=== PATIENT | female | born 1985 | race Caucasian/White ===

== ENCOUNTER 2016-11-30 11:03 | Emergency (ER) | payer SELFPAY ==
[2016-11-30] MEDS ORDERED: DIAZEPAM 5 MG TABLET PO ONE (11:25)
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
[2016-11-30] MEDS ORDERED: ACETAMINOPHEN 325 MG TABLET PO ONE (12:40)
[2016-11-30 13:09] VITALS: BP 118/79
--- NOTE | 2016-12-01 08:43 | EKG REPORT ---
SEVERITY:- ABNORMAL ECG - SINUS TACHYCARDIA NONSPECIFIC INTRAVENTRICULAR CONDUCTION DELAY : Confirmed by: Marcella Jackman 01-Dec-2016 08:42:12
== END 2016-11-30 12:50 | disposition home or self-care (01) ==
LOC: ER 11:03
DX: F41.9 Anxiety disorder, unspecified (principal); Y09 Assault by unspecified means; R06.02 Shortness of breath; R07.9 Chest pain, unspecified; R00.0 Tachycardia, unspecified; F17.210 Nicotine dependence, cigarettes, uncomplicated; Z87.01 Personal history of pneumonia (recurrent); Z88.0 Allergy status to penicillin; Z88.2 Allergy status to sulfonamides
CPT/HCPCS: 71020; 93005; 93010; 99284

== ENCOUNTER 2018-12-05 11:22 | Inpatient (IN) | payer OTHER ==
[2018-12-05] MEDS ORDERED: OXYCODONE-ACETAMINOPHEN 5-325 MG TABLET PO ONE (11:51)
[2018-12-05] MEDS ORDERED: CLINDAMYCIN 600 MG/D5W RTU 600 MG/50 ML RTUPB IV ONE (11:51)
--- NOTE | 2018-12-05 11:54 | ER Document Report ---
ED Medical Screen (RME) - General Chief Complaint: Hand Swelling Stated Complaint: RIGHT ARM SWELLING, PAIN Time Seen by Provider: 12/05/18 11:45 Primary Care Provider: CLIF BOSE MD [Primary Care Provider] - Follow up as needed Mode of Arrival: Ambulatory Information source: Patient Notes: Patient presents complaining of right hand and forearm pain, swelling and erythema. Patient states symptoms started last night and progressively worsened today. Patient states that her pain extends up the entire right upper extremity into the axilla area although the erythema and swelling is localized to the forearm and hand. Patient does report removing a splinter from her right second finger 2 days ago. Patient's tetanus immunization is currently up-to-date I have greeted and performed a rapid initial assessment of this patient. A comprehensive ED assessment and evaluation of the patient, analysis of test results and completion of the medical decision making process will be conducted by additional ED providers. TRAVEL OUTSIDE OF THE [place] IN LAST 30 DAYS: No - Related Data Allergies/Adverse Reactions: amoxicillin trihydrate [From Augmentin] Allergy (Intermediate, Verified 12/05/18 11:24) VOMITING Potassium Clavulanate * [From Augmentin] Allergy (Intermediate, Verified 12/05/18 11:24) VOMITING Sulfa (Sulfonamide Antibiotics) Allergy (Verified 12/05/18 11:24) Past Medical History - Social History Chew tobacco use (# tins/day): No Frequency of alcohol use: None Drug Abuse: None Pulmonary Medical History: Reports: Hx Bronchitis - chronic problem, Hx Pneumonia Renal/ Medical History: Denies: Hx Peritoneal Dialysis Psychiatric Medical History: Reports: Hx Anxiety, Hx Depression Past Surgical History: Reports: Hx Appendectomy - Immunizations Hx Diphtheria, Pertussis, Tetanus Vaccination: Yes - 2008 Physical Exam - Vital signs Vitals: Temp Pulse Resp BP Pulse Ox 98.1 F 95 16 138/81 H 98 12/05/18 11:28 12/05/18 11:28 12/05/18 11:28 12/05/18 11:28 12/05/18 11:28 - Extremities General upper extremity: Tender, Edema. No: Normal color - Erythema, tenderness and warmth to right hand and distal right forearm Course - Vital Signs Vital signs: Temp Pulse Resp BP Pulse Ox 98.1 F 95 16 138/81 H 98 12/05/18 11:28 12/05/18 11:28 12/05/18 11:28 12/05/18 11:28 12/05/18 11:28 Doctor's Discharge - Discharge Referrals: CLIF BOSE MD [Primary Care Provider] - Follow up as needed
[2018-12-05 12:30] LABS: ABSOLUTE LYMPHOCYTES (AUTO) 0.9 10^3/uL (0.5-4.7); ABSOLUTE MONOCYTES (AUTO) 0.6 10^3/uL (0.1-1.4); ABSOLUTE NEUT (AUTO) 9.6 10^3/uL (1.7-8.2); BASOPHILS % (AUTO) 0.3 % (0-2); EOSINOPHILS % (AUTO) 0.1 % (0-6); HEMATOCRIT 41.1 % (36.0-47.0); HEMOGLOBIN 14.1 g/dL (12.0-15.5); LYMPHOCYTES % (AUTO) 8.4 % (13-45); MEAN CORPUSCULAR HEMOGLOBIN 32.2 pg (27.0-33.4); MEAN CORPUSCULAR HGB CONC 34.3 g/dL (32.0-36.0); MEAN CORPUSCULAR VOLUME 94 fl (80-97); MONOCYTES % (AUTO) 5.1 % (3-13); PLATELET COUNT 196 10^3/uL (150-450); RED BLOOD COUNT 4.38 10^6/uL (3.72-5.28); RED CELL DISTRIBUTION WIDTH 14.2 % (11.5-14.0); SEGMENTED NEUTROPHILS % (AUTO) 86.1 % (42-78); TOTAL CELLS COUNTED % (AUTO) 100 %; WHITE BLOOD COUNT 11.1 10^3/uL (4.0-10.5)
--- NOTE | 2018-12-05 12:39 | RADIOLOGY REPORT (SQ) ---
EXAM DESCRIPTION: HAND RIGHT 3 VIEWS COMPLETED DATE/TIME: 12/05/2018 12:31 pm REASON FOR STUDY: PW t r 2nd finger, hand/FA swelling COMPARISON: None. EXAM PARAMETERS: NUMBER OF VIEWS: Three views. TECHNIQUE: AP, lateral and oblique radiographic images acquired of the right hand. LIMITATIONS: None. FINDINGS: MINERALIZATION: Normal. BONES: No acute fracture or dislocation. No worrisome bone lesions. JOINTS: No effusions. SOFT TISSUES: No soft tissue swelling. No foreign body. OTHER: No other significant finding. IMPRESSION: NEGATIVE STUDY OF THE RIGHT HAND. NO RADIOGRAPHIC EVIDENCE OF ACUTE INJURY. TECHNICAL DOCUMENTATION: JOB ID: [id number] [employer]- All Rights Reserved Reading location - IP/workstation name: [email or web address]
[2018-12-05] MEDS ORDERED: MORPHINE SULFATE 10 MG/ML INJ IV ONE (13:24)
--- NOTE | 2018-12-05 13:27 | ER Document Report ---
ED General - General Chief Complaint: Hand Swelling Stated Complaint: RIGHT ARM SWELLING, PAIN Time Seen by Provider: 12/05/18 11:45 Primary Care Provider: CLIF BOSE MD [EMERITUS] - Follow up as needed Mode of Arrival: Ambulatory TRAVEL OUTSIDE OF THE [place] IN LAST 30 DAYS: No - HPI Notes: Patient is a 33-year-old female with no significant past medical history who presents the emergency department complaining of right arm redness and pain with associated swelling that developed over the past 24 hours. Patient states that on the right index finger she did have a splinter that she removed 2 days ago. Tetanus is reported to be up-to-date. Denies any injury. She is still eating and drinking otherwise without difficulty. She is urinating normally. No history of IV drug abuse. Denies any headache, fever, neck pain, URI, sore throat, chest pain, palpitations, syncope, cough, shortness of breath, wheeze, dyspnea, abdominal pain, nausea/vomiting/diarrhea, urinary retention, dysuria, hematuria, loss of control of bowel or bladder, numbness/tingling, saddle anesthesia, muscle paralysis/weakness. - Related Data Allergies/Adverse Reactions: amoxicillin trihydrate [From Augmentin] Allergy (Intermediate, Verified 12/05/18 11:24) VOMITING Potassium Clavulanate * [From Augmentin] Allergy (Intermediate, Verified 12/05/18 11:24) VOMITING Sulfa (Sulfonamide Antibiotics) Allergy (Verified 12/05/18 11:24) Past Medical History - General Information source: Patient - Social History Smoking Status: Current Every Day Smoker Chew tobacco use (# tins/day): No Frequency of alcohol use: None Drug Abuse: None Family History: Reviewed & Not Pertinent Patient has suicidal ideation: No Patient has homicidal ideation: No Pulmonary Medical History: Reports: Hx Bronchitis - chronic problem, Hx Pneumonia Renal/ Medical History: Denies: Hx Peritoneal Dialysis Psychiatric Medical History: Reports: Hx Anxiety, Hx Depression Past Surgical History: Reports: Hx Appendectomy - Immunizations Hx Diphtheria, Pertussis, Tetanus Vaccination: Yes - 2008 Hx Pneumococcal Vaccination: 05/17/11 Review of Systems - Review of Systems -: Yes All other systems reviewed and negative Physical Exam - Vital signs Vitals: Temp Pulse Resp BP Pulse Ox 98.1 F 95 16 138/81 H 98 12/05/18 11:28 04/21/19 11:28 12/05/18 11:28 12/05/18 11:28 12/05/18 11:28 - Notes Notes: PHYSICAL EXAMINATION: GENERAL: Well-appearing, well-nourished and in no acute distress. HEAD: Atraumatic, normocephalic. EYES: Pupils equal round and reactive to light, extraocular movements intact, sclera anicteric, conjunctiva are normal. ENT: Nares patent and without discharge. oropharynx clear without exudates. No tonsilar hypertrophy or erythema. Moist mucous membranes. NECK: Normal range of motion, supple without lymphadenopathy LUNGS: Breath sounds clear to auscultation bilaterally and equal. No wheezes rales or rhonchi. HEART: Regular rate and rhythm without murmurs, rubs, gallops. Musculoskeletal: Rt UE through the fingers: FROM to passive/active. Strength 5+/5. N/V intact distal. Extremities: No cyanosis, clubbing, or edema b/l. Peripheral pulses 2+. Capillary refill less than 3 seconds. NEUROLOGICAL: Normal speech, normal gait. Normal sensory, motor exams PSYCH: Normal mood, normal affect. SKIN: Rt forearm/hand: there is mild erythema to the doral hand with a scabbed area noted where splinter removed from index finger. The forearm is otherwise erythemic, warmth, swollen (with trace pitting edema), no maximal point of tenderness or fluctuance noted. Area has been marked. The erythema is circumferential to the forearm. Course - Re-evaluation Re-evalutation: 12/05/18 14:27 Patient is an afebrile, well-hydrated, 33-year-old female who presents the emergency department with an extensive cellulitis to her right forearm. Vitals are acceptable without significant tachycardia, tachypnea, or hypoxia. PE is otherwise unremarkable. Venous Doppler was unremarkable. X-ray was also unremarkable of the hand. CBC does show a mildly elevated white count. BMP unremarkable. Patient was given IV clindamycin. I did have Dr. Abe jeanal the patient as well and agrees with admission for IV antibiotics as the extensiveness of the cellulitis developed over the past 18 hours. Patient is in agreement with this plan. I did speak with our hospitalist, Dr. Causey, who accepted patient for admission to telemetry. - Vital Signs Vital signs: Temp Pulse Resp BP Pulse Ox 98.1 F 95 19 126/84 H 98 12/05/18 11:28 12/05/18 11:28 12/05/18 13:01 12/05/18 13:01 12/05/18 13:01 - Laboratory Result Diagrams: 12/05/18 12:12 12/05/18 13:30 Laboratory results interpreted by me: 12/05/18 12/05/18 12:12 13:30 WBC 11.1 H RDW 14.2 H Seg Neutrophils % 86.1 H Lymphocytes % 8.4 L Absolute Neutrophils 9.6 H Sodium 135.7 L Glucose 122 H Alkaline Phosphatase 139 H Discharge - Discharge Clinical Impression: Right forearm cellulitis Condition: Stable Disposition: ADMITTED INPATIENT Admitting Provider: Padilla (Hospitalist) Unit Admitted: Telemetry Referrals: CLIF BOSE MD [EMERITUS] - Follow up as needed
[2018-12-05 14:05] LABS: ALANINE AMINOTRANSFERASE 25 U/L (9-52); ALBUMIN 3.8 g/dL (3.5-5.0); ALKALINE PHOSPHATASE 139 U/L (38-126); ANION GAP 9 (5-19); ASPARTATE AMINO TRANSFERASE 30 U/L (14-36); BILIRUBIN,DIRECT 0.3 mg/dL (0.0-0.4); BILIRUBIN,TOTAL 0.7 mg/dL (0.2-1.3); BLOOD UREA NITROGEN 9 mg/dL (7-20); CALCIUM 9.2 mg/dL (8.4-10.2); CARBON DIOXIDE 26 mmol/L (22-30); CHLORIDE 101 mmol/L (98-107); GLUCOSE 122 mg/dL (75-110); POTASSIUM 3.9 mmol/L (3.6-5.0); SODIUM 135.7 mmol/L (137-145); TOTAL PROTEIN 7.2 g/dL (6.3-8.2)
--- NOTE | 2018-12-05 14:13 | RADIOLOGY REPORT (SQ) ---
EXAM DESCRIPTION: VENOUS UNILATERAL UPPER COMPLETED DATE/TIME: 12/05/2018 2:05 pm REASON FOR STUDY: RUE pain, swelling COMPARISON: None. TECHNIQUE: Dynamic and static hall scale and color images acquired of the right arm venous system. S elected spectral images acquired with additional compression and augmentation maneuvers. The contrala teral subclavian vein and internal jugular vein were also imaged. Images stored on PACS. LIMITATIONS: None. FINDINGS: INTERNAL JUGULAR VEIN: Normal phasicity, compression, augmentation. No visualized echogeni c material on hall scale. No defects on color images. Comparison opposite side normal. SUBCLAVIAN VEIN: Normal compression, augmentation. No visualized echogenic material on hall scale. No defects on color images. AXILLARY VEIN: Normal compression, augmentation. No visualized echogenic material on hall scale. No d efects on color images. BRACHIAL VEIN: Normal compression, augmentation. No visualized echogenic material on hall scale. No d efects on color images. BASILIC VEIN: Normal compression, augmentation. No visualized echogenic material on hall scale. No de fects on color images. CEPHALIC VEIN: Normal compression, augmentation. No visualized echogenic material on hall scale. No d efects on color images. OTHER: No other significant finding. CONTRALATERAL SUBCLAVIAN VEIN AND INTERNAL JUGULAR VEIN: Normal phasicity, compression and augmentation. No visualized echogenic material on hall scale. No de fects on color images. IMPRESSION: NO EVIDENCE DVT OR SVT RIGHT ARM. TECHNICAL DOCUMENTATION: JOB ID: [id number] [employer]- All Rights Reserved Reading location - IP/workstation name: [email or web address]
[2018-12-05] MEDS ORDERED: ONDANSETRON HCL INJ/PF 4 MG/2 ML SDV IV PRN (15:01)
[2018-12-05] MEDS ORDERED: ACETAMINOPHEN 325 MG TABLET PO PRN (15:01)
[2018-12-05] MEDS ORDERED: AMPICILLIN SOD/SULBACTAM 3 GM VIAL IV SCH (15:15)
--- NOTE | 2018-12-05 15:23 | PDOC H&P ---
History of Present Illness Admission Date/PCP: 12/05/18 14:39 Patient complains of: Right arm swelling and redness of one day duration History of Present Illness: ЕЛЕНА ESTRADA is a 33 year old female with history of anxiety disorder came to the emergency room with complaints of weeks ago with right arm swelling pain and redness. 2 days ago she removed the [place] splinter from the right index finger by poking around it and this morning wake up with uatsdin symptoms. Denies any fever. Complaining of pain in the right arm pain scale is 6 x 10. Received mo rphine IV in the emergency room. Patient denies any drug use. Denies any previous episodes. Denies any rashes in other places. Alert oriented communicating well at the time of examination no meningeal signs present. Patient and her fianc agreed to stay in the hospital for at least 2 days. Past Medical History Cardiac Medical History: Reports: None Pulmonary Medical History: Reports: Bronchitis - chronic problem, Pneumonia EENT Medical History: Reports: None Neurological Medical History: Reports: None Endocrine Medical History: Reports: None Malignancy Medical History: Reports: None GI Medical History: Reports: None Psychiatric Medical History: Reports: Depression Past Surgical History Past Surgical History: Reports: Appendectomy Social History Information Source: Patient Smoking Status: Current Every Day Smoker Frequency of Alcohol Use: Occasional Hx Recreational Drug Use: No - Advance Directive Resuscitation Status: Full Code Family History Family History: Reviewed & Not Pertinent Parental Family History Reviewed: Yes - Not significant. Children Family History Reviewed: Yes Sibling(s) Family History Reviewed.: Yes Medication/Allergy Allergies/Adverse Reactions: amoxicillin trihydrate [From Augmentin] Allergy (Intermediate, Verified 12/05/18 11:24) VOMITING Potassium Clavulanate * [From Augmentin] Allergy (Intermediate, Verified 12/05/18 11:24) VOMITING Sulfa (Sulfonamide Antibiotics) Allergy (Verified 12/05/18 11:24) Review of Systems Constitutional: ABSENT: chills, fatigue, fever(s), headache(s), night sweats, weakness Eyes: ABSENT: visual disturbances Ears: ABSENT: hearing changes Cardiovascular: ABSENT: chest pain, dyspnea on exertion, edema, orthropnea, palpitations Respiratory: ABSENT: cough, hemoptysis Gastrointestinal: ABSENT: abdominal pain, constipation, diarrhea, hematemesis, hematochezia, nausea, vomiting Genitourinary: ABSENT: dysuria, hematuria Musculoskeletal: ABSENT: joint swelling Integumentary: PRESENT: other - Developed sudden onset of swellling on the right arm associated with redness pain. Neurological: ABSENT: abnormal gait, abnormal speech, confusion, dizziness, focal weakness, syncope Psychiatric: ABSENT: anxiety, depression, homidical ideation, suicidal ideation Endocrine: ABSENT: cold intolerance, heat intolerance, polydipsia, polyuria Hematologic/Lymphatic: ABSENT: easy bleeding, easy bruising Physical Exam Vital Signs: Temp Pulse Resp BP Pulse Ox 98.1 F 95 19 126/84 H 98 12/05/18 11:28 12/05/18 11:28 12/05/18 13:01 12/05/18 13:01 12/05/18 13:01 Intake & Output 12/04/18 12/05/18 12/06/18 06:59 06:59 06:59 Intake Total 50 Balance 50 Weight 130.1 kg General appearance: PRESENT: mild distress, obese Head exam: PRESENT: atraumatic Eye exam: PRESENT: PERRLA Neck exam: ABSENT: carotid bruit, JVD, lymphadenopathy, thyromegaly Respiratory exam: PRESENT: clear to auscultation sindi. ABSENT: rales, rhonchi, wheezes Cardiovascular exam: PRESENT: tachycardia GI/Abdominal exam: PRESENT: normal bowel sounds, soft. ABSENT: distended, guarding, mass, organolmegaly, rebound, tenderness Extremities exam: PRESENT: other - Right arm with erythema redness pain and touch increased warmth on touch with patent radial pulse. Neurological exam: PRESENT: alert, awake, oriented to person, oriented to place, oriented to time, oriented to situation, CN II-XII grossly intact. ABSENT: motor sensory deficit Psychiatric exam: PRESENT: appropriate affect, normal mood. ABSENT: homicidal ideation, suicidal ideation Results Laboratory Results: 12/05/18 12:12 12/05/18 13:30 12/05/18 12/05/18 12/05/18 12:12 12:12 13:30 WBC 11.1 H RBC 4.38 Hgb 14.1 Hct 41.1 MCV 94 MCH 32.2 MCHC 34.3 RDW 14.2 H Plt Count 196 Seg Neutrophils % 86.1 H Lymphocytes % 8.4 L Monocytes % 5.1 Eosinophils % 0.1 Basophils % 0.3 Absolute Neutrophils 9.6 H Absolute Lymphocytes 0.9 Absolute Monocytes 0.6 Absolute Eosinophils 0.0 Absolute Basophils 0.0 Sodium Cancelled 135.7 L Potassium Cancelled 3.9 Chloride Cancelled 101 Carbon Dioxide Cancelled 26 Anion Gap Cancelled 9 BUN Cancelled 9 Creatinine Cancelled 0.66 Est GFR ( Amer) Cancelled > 60 Est GFR (Non-Af Amer) Cancelled > 60 Glucose Cancelled 122 H Calcium Cancelled 9.2 Total Bilirubin 0.7 AST 30 ALT 25 Alkaline Phosphatase 139 H Total Protein 7.2 Albumin 3.8 Impressions: Hand X-Ray 12/05/18 12:05 IMPRESSION: NEGATIVE STUDY OF THE RIGHT HAND. NO RADIOGRAPHIC EVIDENCE OF ACUTE INJURY. Venous Doppler Study 12/05/18 12:11 IMPRESSION: NO EVIDENCE DVT OR SVT RIGHT ARM. Assessment and Plan - Diagnosis (1) Right forearm cellulitis Is this a current diagnosis for this admission?: Yes Plan: 12/05/2018-patient is going to be admitted with right arm cellulitis. She is going to be admitted as inpatient. To start on Unasyn 3 g IV every [address] right extremity will be done. GI prophylaxis DVT prophylaxis initiated. Blood cultures urine cultures are pending. To start on Dilaudid 1 mg every 4 as needed for pain. Elevation of the right arm was recommended. No signs of any compartmental syndrome at the time of examination. (2) Obesity (BMI 30-39.9) Is this a current diagnosis for this admission?: No Plan: 12/05/2018 patient's BMI is more than 36. Diet exercise weight loss lifestyle modifications are discussed , dietary consult was requested. (3) Tobacco use Is this a current diagnosis for this admission?: No Plan: 12/05/2018-patient is a chronic smoker current smoker. Smoking because letter provided for more than [address] a nicotine patch 21 mcg daily. - Time Time Spent with patient: 15-24 minutes Smoking Cessation Education: over 10 minutes Medications reviewed and adjusted accordingly: Yes Anticipated discharge: Home
--- NOTE | 2018-12-05 16:15 | RADIOLOGY REPORT (SQ) ---
EXAM DESCRIPTION: CT RT UPPER EXTREMITY WITHOUT COMPLETED DATE/TIME: 12/05/2018 4:00 pm REASON FOR STUDY: RT ARM SWELLING pulled splinter out of her index finger, now with diffuse forearm soft tissue swelling COMPARISON: Right upper extremity venous Doppler 12/05/2018 Right hand three views 12/05/2018 TECHNIQUE: Axial imaging performed through the right forearm with reformatted oblique coronal and ob lique sagittal imaging windowed for bone and soft tissues. All CT scanners at this facility use dose modulation, iterative reconstruction, and/or weight based d osing when appropriate to reduce radiation dose to as low as reasonably achievable (ALARA). [facility]: Dose Right [facility]: CareDose [facility]: Dose Right [facility]: Teradose 4D [facility]: [employer] RADIATION DOSE: CT Rad equipment meets quality standard of care and radiation dose reduction techniq ues were employed. CTDIvol: 2.6 mGy. DLP: 75 mGy-cm. mGy. LIMITATIONS: None. FINDINGS: There is diffuse skin thickening and subcutaneous edema throughout the distal half of the right forearm. No well-circumscribed fluid pocket worrisome for abscess. Underlying radius and ulna are unremarkable. Limited view of the carpal bones in the field of view are unremarkable. Report d iscussed with Dr. Esparza IMPRESSION: Right forearm cellulitis TECHNICAL DOCUMENTATION: JOB ID: [id number] Quality ID # [id number]: Final reports with documentation of one or more dose reduction techniques (e.g., Au tomated exposure control, adjustment of the mA and/or kV according to patient size, use of iterative reconstruction technique) 2010 [employer]- All Rights Reserved Reading location - IP/workstation name: [email or web address]
[2018-12-05] MEDS: FAMOTIDINE 20 MG TABLET PO SCH (17:17)
[2018-12-05] MEDS: DIAZEPAM 5 MG TABLET PO SCH ×2 (17:18→21:40)
[2018-12-05] MEDS: NICOTINE 21 MG/24 HR PATCH.TD24 TD SCH (17:20)
[2018-12-05] MEDS: NORMAL SALINE 1000 ML 1,000 ML IV PRN ×2 (17:27→20:51)
[2018-12-05] MEDS: ENOXAPARIN SODIUM INJ 40 MG/0.4 ML DISP.SYRIN SUBCUT SCH (17:28)
[2018-12-05] MEDS ORDERED: AMPICILLIN SODIUM/SULBACTAM NA 3 GM in NORMAL SALINE 100 ML IV SCH (18:00)
[2018-12-05] MEDS: DOCUSATE SODIUM 100 MG CAPSULE PO SCH (18:07)
[2018-12-05] MEDS: AMPICILLIN SODIUM/SULBACTAM NA 3 GM in NORMAL SALINE 100 ML IV SCH (18:13)
[2018-12-05] MEDS: HYDROMORPHONE HCL INJ/PF 2 MG/ML AMPULE IV PRN ×2 (18:24→22:30)
[2018-12-05] MEDS ORDERED: CLINDAMYCIN 900 MG/D5W RTU 900 MG/50 ML RTUPB IV ONE (23:30)
[2018-12-06] MEDS: AMPICILLIN SODIUM/SULBACTAM NA 3 GM in NORMAL SALINE 100 ML IV SCH (00:12)
[2018-12-06] MEDS: HYDROMORPHONE HCL INJ/PF 2 MG/ML AMPULE IV PRN (03:21)
[2018-12-06] MEDS: DIAZEPAM 5 MG TABLET PO SCH (03:21)
[2018-12-06 03:48] LABS: ABSOLUTE EOSINOPHILS # (AUTO) 0.1 10^3/uL (0.0-0.6); ABSOLUTE LYMPHOCYTES (AUTO) 1.8 10^3/uL (0.5-4.7); ABSOLUTE MONOCYTES (AUTO) 0.5 10^3/uL (0.1-1.4); ABSOLUTE NEUT (AUTO) 5.2 10^3/uL (1.7-8.2); BASOPHILS % (AUTO) 0.5 % (0-2); EOSINOPHILS % (AUTO) 1.2 % (0-6); HEMATOCRIT 37.2 % (36.0-47.0); HEMOGLOBIN 12.8 g/dL (12.0-15.5); LYMPHOCYTES % (AUTO) 23.2 % (13-45); MEAN CORPUSCULAR HEMOGLOBIN 32.5 pg (27.0-33.4); MEAN CORPUSCULAR HGB CONC 34.4 g/dL (32.0-36.0); MEAN CORPUSCULAR VOLUME 94 fl (80-97); MONOCYTES % (AUTO) 6.9 % (3-13); PLATELET COUNT 183 10^3/uL (150-450); RED BLOOD COUNT 3.94 10^6/uL (3.72-5.28); RED CELL DISTRIBUTION WIDTH 14.1 % (11.5-14.0); SEGMENTED NEUTROPHILS % (AUTO) 68.2 % (42-78); TOTAL CELLS COUNTED % (AUTO) 100 %; WHITE BLOOD COUNT 7.7 10^3/uL (4.0-10.5)
[2018-12-06 04:13] LABS: ALANINE AMINOTRANSFERASE 17 U/L (9-52); ALBUMIN 3.2 g/dL (3.5-5.0); ALKALINE PHOSPHATASE 131 U/L (38-126); ANION GAP 5 (5-19); ASPARTATE AMINO TRANSFERASE 28 U/L (14-36); BILIRUBIN,DIRECT 0.3 mg/dL (0.0-0.4); BILIRUBIN,TOTAL 0.5 mg/dL (0.2-1.3); BLOOD UREA NITROGEN 11 mg/dL (7-20); CALCIUM 8.9 mg/dL (8.4-10.2); CARBON DIOXIDE 24 mmol/L (22-30); CHLORIDE 106 mmol/L (98-107); CHOLESTEROL 128.83 mg/dL (0-200); GLUCOSE 108 mg/dL (75-110); POTASSIUM 3.6 mmol/L (3.6-5.0); SODIUM 135.2 mmol/L (137-145); TOTAL PROTEIN 6.3 g/dL (6.3-8.2); TRIGLYCERIDES 78 mg/dL (<150)
[2018-12-06 04:24] LABS: DIRECT LDL 39 mg/dL (<100)
[2018-12-06] MEDS: FAMOTIDINE 20 MG TABLET PO SCH ×2 (05:51→17:29)
[2018-12-06] MEDS: NORMAL SALINE 1000 ML 1,000 ML IV PRN (05:52)
[2018-12-06 06:11] LABS: APPEARANCE,URINE SLIGHTLY-CLOUDY; BILIRUBIN,URINE NEGATIVE (NEGATIVE); COLOR,URINE DARK YELLOW; GLUCOSE, URINE NEGATIVE (NEGATIVE); KETONES,URINE NEGATIVE (NEGATIVE); LEUKOCYTE ESTERASE,URINE NEGATIVE (NEGATIVE); NITRITE,URINE NEGATIVE (NEGATIVE); PROTEIN,URINE 30 mg/dL (NEGATIVE); URINE SPECIFIC GRAVITY 1.033
[2018-12-06 06:24] LABS: URINE AMPHETAMINES SCREEN NEGATIVE; URINE BARBITURATES SCREEN NEGATIVE; URINE METHADONE SCREEN NEGATIVE; URINE PHENCYCLIDINE SCREEN NEGATIVE
[2018-12-06 07:02] LABS: URINE BENZODIAZEPINES SCREEN UNCONFIRMED POSITIVE; URINE COCAINE SCREEN UNCONFIRMED POSITIVE; URINE MARIJUANA (THC) SCREEN UNCONFIRMED POSITIVE
[2018-12-06] MEDS: HYDROCODONE/ACETAMINOPHEN 5-325 MG TABLET PO PRN ×3 (09:12→23:00)
[2018-12-06] MEDS: DOCUSATE SODIUM 100 MG CAPSULE PO SCH ×2 (09:12→17:28)
[2018-12-06] MEDS: ENOXAPARIN SODIUM INJ 40 MG/0.4 ML DISP.SYRIN SUBCUT SCH (09:13)
[2018-12-06] MEDS: MORPHINE SULFATE 10 MG/ML INJ IV PRN ×4 (09:18→22:10)
[2018-12-06] MEDS: NICOTINE 21 MG/24 HR PATCH.TD24 TD SCH (09:25)
[2018-12-06] MEDS ORDERED: CLINDAMYCIN 900 MG/D5W RTU 900 MG/50 ML RTUPB IV SCH (10:00)
[2018-12-06 10:04] LABS: FREE T3 4.89 pg/mL (2.77-5.27); FREE T4 (FREE THYROXINE) 1.48 ng/dL (0.78-2.19)
--- NOTE | 2018-12-06 16:28 | PDOC PROGRESS REPORT ---
Subjective Progress Note for:: 12/06/18 Subjective:: ЕЛЕНА ESTRADA is a 33 year old female with history of anxiety disorder came to the emergency room with complaints of weeks ago with right arm swelling pain and redness. 2 days ago she removed the [place] splinter from the right index finger by poking around it and this morning wake up with mu-ism symptoms. Denies any fever. Complaining of pain in the right arm pain scale is 6 x 10. Received morphine IV in the emergency room. Patient denies any drug use. Denies any previous episodes. Denies any rashes in other places. Alert oriented communicating well at the time of examination no meningeal signs present. Patient and her fianc agreed to stay in the hospital for at least 2 days. 12/06/2018. No acute events overnight. Patient is still having right upper extremity pain, swelling and erythema has decreased since yesterday. Denies any fever, chills, nausea, vomiting, diarrhea, constipation or any urinary symptoms. UDS is positive for cocaine and marijuana, PT denies any IV drug abuse. Reason For Visit: CELLULITIS Physical Exam Vital Signs: Temp Pulse Resp BP Pulse Ox 97.6 F 85 16 109/44 L 100 12/06/18 11:54 12/06/18 14:00 12/06/18 11:54 12/06/18 11:54 12/06/18 11:54 Intake & Output 12/05/18 12/06/18 12/07/18 06:59 06:59 06:59 Intake Total 1564 390 Balance 1564 390 Weight 132.4 kg General appearance: PRESENT: no acute distress, well-developed, well-nourished Head exam: PRESENT: atraumatic, normocephalic Eye exam: PRESENT: conjunctiva pink, EOMI, PERRLA. ABSENT: scleral icterus Ear exam: PRESENT: normal external ear exam Mouth exam: PRESENT: moist, tongue midline Neck exam: ABSENT: carotid bruit, JVD, lymphadenopathy, thyromegaly Respiratory exam: PRESENT: clear to auscultation sindi. ABSENT: rales, rhonchi, wheezes Cardiovascular exam: PRESENT: RRR. ABSENT: diastolic murmur, rubs, systolic m urmur Pulses: PRESENT: normal dorsalis pedis pul Vascular exam: PRESENT: normal capillary refill GI/Abdominal exam: PRESENT: normal bowel sounds, soft. ABSENT: distended, guarding, mass, organolmegaly, rebound, tenderness Rectal exam: PRESENT: deferred Extremities exam: PRESENT: full ROM. ABSENT: calf tenderness, clubbing, pedal edema Neurological exam: PRESENT: alert, awake, oriented to person, oriented to place, oriented to time, oriented to situation, CN II-XII grossly intact. ABSENT: motor sensory deficit Psychiatric exam: PRESENT: appropriate affect, normal mood. ABSENT: homicidal ideation, suicidal ideation Skin exam: PRESENT: dry, intact, warm, other - Right upper extremity below elbow, erythema, tender to palpation, neurovascularly intact, no active discharge or drainage.. ABSENT: cyanosis, rash Results Laboratory Results: 12/06/18 03:37 12/06/18 03:37 12/06/18 12/06/18 12/06/18 03:37 03:37 03:37 WBC 7.7 RBC 3.94 Hgb 12.8 Hct 37.2 MCV 94 MCH 32.5 MCHC 34.4 RDW 14.1 H Plt Count 183 Seg Neutrophils % 68.2 Lymphocytes % 23.2 Monocytes % 6.9 Eosinophils % 1.2 Basophils % 0.5 Absolute Neutrophils 5.2 Absolute Lymphocytes 1.8 Absolute Monocytes 0.5 Absolute Eosinophils 0.1 Absolute Basophils 0.0 Sodium 135.2 L Potassium 3.6 Chloride 106 Carbon Dioxide 24 Anion Gap 5 BUN 11 Creatinine 0.58 Est GFR ( Amer) > 60 Est GFR (Non-Af Amer) > 60 Glucose 108 Calcium 8.9 Magnesium 2.2 Total Bilirubin 0.5 AST 28 ALT 17 Alkaline Phosphatase 131 H Total Protein 6.3 Albumin 3.2 L Triglycerides 78 Cholesterol 128.83 LDL Cholesterol Direct 39 VLDL Cholesterol 16.0 HDL Cholesterol 81 TSH 6.49 H Free T4 Free T3 pg/mL Urine Color Urine Appearance Urine pH Ur Specific [place] Urine Protein Urine Glucose (UA) Urine Ketones Urine Blood Urine Nitrite Ur Leukocyte Esterase Urine WBC (Auto) Urine RBC (Auto) 12/06/18 12/06/18 03:37 05:50 WBC RBC Hgb Hct MCV MCH MCHC RDW Plt Count Seg Neutrophils % Lymphocytes % Monocytes % Eosinophils % Basophils % Absolute Neutrophils Absolute Lymphocytes Absolute Monocytes Absolute Eosinophils Absolute Basophils Sodium Potassium Chloride Carbon Dioxide Anion Gap BUN Creatinine Est GFR ( Amer) Est GFR (Non-Af Amer) Glucose Calcium Magnesium Total Bilirubin AST ALT Alkaline Phosphatase Total Protein Albumin Triglycerides Cholesterol LDL Cholesterol Direct VLDL Cholesterol HDL Cholesterol TSH Free T4 1.48 Free T3 pg/mL 4.89 Urine Color DARK YELLOW Urine Appearance SLIGHTLY-CLOUDY Urine pH 5.0 Ur Specific [place] 1.033 Urine Protein 30 H Urine Glucose (UA) NEGATIVE Urine Ketones NEGATIVE Urine Blood MODERATE H Urine Nitrite NEGATIVE Ur Leukocyte Esterase NEGATIVE Urine WBC (Auto) 4 Urine RBC (Auto) 25 12/05/18 12/05/18 12/05/18 16:20 16:20 21:10 Creatine Kinase 189 H 173 H Troponin I < 0.012 12/05/18 12/06/18 12/06/18 21:10 03:37 03:37 Creatine Kinase 126 Troponin I < 0.012 < 0.012 Impressions: Upper Extremity CT 12/05/18 00:00 IMPRESSION: Right forearm cellulitis Hand X-Ray 12/05/18 12:05 IMPRESSION: NEGATIVE STUDY OF THE RIGHT HAND. NO RADIOGRAPHIC EVIDENCE OF ACUTE INJURY. Venous Doppler Study 12/05/18 12:11 IMPRESSION: NO EVIDENCE DVT OR SVT RIGHT ARM. Assessment and Plan - Diagnosis (1) Right forearm cellulitis Is this a current diagnosis for this admission?: Yes Plan: Improving but is still quite tender and swollen. Edema improving. WBC within normal limits. Afebrile. Culture no growth. CT right upper extremity positive for cellulitis. Day 2 on Unasyn. If symptomatic improvement no lab abnormalities will DC home on p.o. antibiotics to follow-up with PCP. (2) Tobacco use Is this a current diagnosis for this admission?: No Plan: Advised on quitting. NicoDerm patch. (3) Obesity (BMI 30-39.9) Is this a current diagnosis for this admission?: No Plan: Diet and lifestyle modification recommended. (4) Drug abuse Is this a current diagnosis for this admission?: Yes Plan: UDS positive for opiates, benzodiazepines, cocaine, marijuana. Monitor for withdrawals. PT advised on quitting. Notes. Patient received opioids in the hospital which may have contributed to her positive opiate screen. (5) Hematuria Is this a current diagnosis for this admission?: Yes Plan: Denies any urinary symptoms. Currently menstruating. Outpatient PCP follow-up. Hemoglobin within normal limits.
[2018-12-06] MEDS: PIPERACILLIN SODIUM/TAZOBACTAM 3.375 GM in NORMAL SALINE 100 ML IV SCH ×2 (20:38→22:25)
[2018-12-06] MEDS: VANCOMYCIN HCL 1,500 MG in DEXTROSE 5%-WATER 250 ML IV SCH (22:25)
[2018-12-06 23:36] LABS: URINE AMPHETAMINES SCREEN NEGATIVE; URINE BARBITURATES SCREEN NEGATIVE; URINE METHADONE SCREEN NEGATIVE; URINE PHENCYCLIDINE SCREEN NEGATIVE
[2018-12-07 00:30] LABS: URINE BENZODIAZEPINES SCREEN UNCONFIRMED POSITIVE; URINE COCAINE SCREEN UNCONFIRMED POSITIVE; URINE MARIJUANA (THC) SCREEN UNCONFIRMED POSITIVE
[2018-12-07] MEDS: PIPERACILLIN SODIUM/TAZOBACTAM 3.375 GM in NORMAL SALINE 100 ML IV SCH ×4 (02:30→20:00)
[2018-12-07] MEDS: VANCOMYCIN HCL 1,500 MG in DEXTROSE 5%-WATER 250 ML IV SCH ×3 (05:40→21:37)
[2018-12-07] MEDS: MORPHINE SULFATE 10 MG/ML INJ IV PRN (05:45)
[2018-12-07 05:46] LABS: ABSOLUTE EOSINOPHILS # (AUTO) 0.1 10^3/uL (0.0-0.6); ABSOLUTE LYMPHOCYTES (AUTO) 2.2 10^3/uL (0.5-4.7); ABSOLUTE MONOCYTES (AUTO) 0.4 10^3/uL (0.1-1.4); BASOPHILS % (AUTO) 0.4 % (0-2); EOSINOPHILS % (AUTO) 1.7 % (0-6); HEMATOCRIT 34.9 % (36.0-47.0); HEMOGLOBIN 11.9 g/dL (12.0-15.5); LYMPHOCYTES % (AUTO) 46.5 % (13-45); MEAN CORPUSCULAR HEMOGLOBIN 32.6 pg (27.0-33.4); MEAN CORPUSCULAR HGB CONC 34.1 g/dL (32.0-36.0); MEAN CORPUSCULAR VOLUME 95 fl (80-97); MONOCYTES % (AUTO) 8.1 % (3-13); PLATELET COUNT 179 10^3/uL (150-450); RED BLOOD COUNT 3.66 10^6/uL (3.72-5.28); RED CELL DISTRIBUTION WIDTH 14.4 % (11.5-14.0); SEGMENTED NEUTROPHILS % (AUTO) 43.3 % (42-78); TOTAL CELLS COUNTED % (AUTO) 100 %; WHITE BLOOD COUNT 4.7 10^3/uL (4.0-10.5)
[2018-12-07] MEDS: FAMOTIDINE 20 MG TABLET PO SCH ×2 (05:58→18:01)
[2018-12-07 06:29] LABS: ALANINE AMINOTRANSFERASE 18 U/L (9-52); ALBUMIN 2.5 g/dL (3.5-5.0); ALKALINE PHOSPHATASE 103 U/L (38-126); ASPARTATE AMINO TRANSFERASE 19 U/L (14-36); BILIRUBIN,DIRECT 0.1 mg/dL (0.0-0.4); BILIRUBIN,TOTAL 0.1 mg/dL (0.2-1.3); BLOOD UREA NITROGEN 12 mg/dL (7-20); CALCIUM 8.8 mg/dL (8.4-10.2); CARBON DIOXIDE 27 mmol/L (22-30); CHLORIDE 111 mmol/L (98-107); GLUCOSE 91 mg/dL (75-110); SODIUM 140.4 mmol/L (137-145); TOTAL PROTEIN 5.3 g/dL (6.3-8.2)
[2018-12-07 06:35] LABS: ALCOHOL < 10 mg/dL (NONE DETECTED)
[2018-12-07 06:36] LABS: ANION GAP 2 (5-19)
[2018-12-07] MEDS: HYDROMORPHONE HCL INJ/PF 2 MG/ML AMPULE IV PRN ×3 (09:01→19:49)
[2018-12-07] MEDS: ONDANSETRON HCL INJ/PF 4 MG/2 ML SDV IV PRN ×2 (09:02→14:38)
[2018-12-07] MEDS: ENOXAPARIN SODIUM INJ 40 MG/0.4 ML DISP.SYRIN SUBCUT SCH (12:07)
[2018-12-07] MEDS: DOCUSATE SODIUM 100 MG CAPSULE PO SCH ×2 (12:07→18:01)
[2018-12-07] MEDS: NICOTINE 21 MG/24 HR PATCH.TD24 TD SCH (12:07)
--- NOTE | 2018-12-07 12:48 | PDOC PROGRESS REPORT ---
Subjective Progress Note for:: 12/07/18 Subjective:: ЕЛЕНА ESTRADA is a 33 year old female with history of anxiety disorder came to the emergency room with complaints of weeks ago with right arm swelling pain and redness. 2 days ago she removed the [place] splinter from the right index finger by poking around it and this morning wake up with lutheran symptoms. Denies any fever. Complaining of pain in the right arm pain scale is 6 x 10. Received morphine IV in the emergency room. Patient denies any drug use. Denies any previous episodes. Denies any rashes in other places. Alert oriented communicating well at the time of examination no meningeal signs present. Patient and her fianc agreed to stay in the hospital for at least 2 days. 12/06/2018. No acute events overnight. Patient is still having right upper extremity pain, swelling and erythema has decreased since yesterday. Denies any fever, chills, nausea, vomiting, diarrhea, constipation or any urinary symptoms. UDS is positive for cocaine and marijuana, PT denies any IV drug abuse. 12/07/2018. As per my conversation with the nursing staff orvernight patient has been noticed to frequently go to smoke, each time returning the hallways and her room with a smell like marijuana smoke, nursing staff also noted that her visitors bring all alcohol to her room. Signs of infection on discharge also noted that the peripheral IV site on the left upper extremity. Otherwise patient has been cooperative and just complaining of persistent right upper extremity pain 5/5 only relieved with Dilaudid, morphine and hydrocodone are not effective. Denies any chest pain, nausea, vomiting, diarrhea, constipation or any urinary symptoms. Reason For Visit: CELLULITIS Physical Exam Vital Signs: Temp Pulse Resp BP Pulse Ox 97.9 F 76 20 113/47 L 99 12/07/18 04:29 12/07/18 07:00 12/07/18 04:29 12/07/18 04:29 12/07/18 04:29 Intake & Output 12/06/18 12/07/18 12/08/18 06:59 06:59 06:59 Intake Total 1564 2336 343 Output Total 0 Balance 1564 2336 343 Weight 132.4 kg 132 kg 132 kg General appearance: PRESENT: no acute distress, well-developed, well-nourished Head exam: PRESENT: atraumatic, normocephalic Eye exam: PRESENT: conjunctiva pink, EOMI, PERRLA. ABSENT: scleral icterus Respiratory exam: PRESENT: clear to auscultation sindi. ABSENT: rales, rhonchi, wheezes Cardiovascular exam: PRESENT: RRR. ABSENT: diastolic murmur, rubs, systolic murmur GI/Abdominal exam: PRESENT: normal bowel sounds, soft. ABSENT: distended, guarding, mass, organolmegaly, rebound, tenderness Extremities exam: PRESENT: full ROM, other - Right upper extremity swelling, warmth and mild erythema distal to the elbow joint extending to the dorsal aspect of the hand. Tender to palpation and passive range of motion. Neurovascularly intact. No sign of active discharge,. ABSENT: calf tenderness, clubbing, pedal edema Neurological exam: PRESENT: alert, awake, oriented to person, oriented to place, oriented to time, oriented to situation, CN II-XII grossly intact. ABSENT: motor sensory deficit Results Laboratory Results: 12/07/18 05:28 12/07/18 05:28 12/07/18 12/07/18 05:28 05:28 WBC 4.7 RBC 3.66 L Hgb 11.9 L Hct 34.9 L MCV 95 MCH 32.6 MCHC 34.1 RDW 14.4 H Plt Count 179 Seg Neutrophils % 43.3 Lymphocytes % 46.5 H Monocytes % 8.1 Eosinophils % 1.7 Basophils % 0.4 Absolute Neutrophils 2.0 Absolute Lymphocytes 2.2 Absolute Monocytes 0.4 Absolute Eosinophils 0.1 Absolute Basophils 0.0 Sodium 140.4 Potassium 4.0 Chloride 111 H Carbon Dioxide 27 Anion Gap 2 L BUN 12 Creatinine 0.70 Est GFR ( Amer) > 60 Est GFR (Non-Af Amer) > 60 Glucose 91 Calcium 8.8 Magnesium 2.1 Total Bilirubin 0.1 L AST 19 ALT 18 Alkaline Phosphatase 103 Total Protein 5.3 L Albumin 2.5 L 12/05/18 12/05/18 12/05/18 16:20 16:20 21:10 Creatine Kinase 189 H 173 H Troponin I < 0.012 12/05/18 12/06/18 12/06/18 21:10 03:37 03:37 Creatine Kinase 126 Troponin I < 0.012 < 0.012 Impressions: Upper Extremity CT 12/05/18 00:00 IMPRESSION: Right forearm cellulitis Hand X-Ray 12/05/18 12:05 IMPRESSION: NEGATIVE STUDY OF THE RIGHT HAND. NO RADIOGRAPHIC EVIDENCE OF ACUTE INJURY. Venous Doppler Study 12/05/18 12:11 IMPRESSION: NO EVIDENCE DVT OR SVT RIGHT ARM. Assessment and Plan - Diagnosis (1) Right forearm cellulitis Is this a current diagnosis for this admission?: Yes Plan: Mild improvement. Tender to palpation over elbow and hand. Neurovascularly intact. No crepitus or sign of compartment syndrome. WBC within normal limits. Afebrile. Culture no growth. CT right upper extremity positive for cellulitis. Received Unasyn for 2 days. Switched to Vanco and Zosyn on 12/06/2018 after patient complained of worsening pain. 2 of thank and Zosyn. Total 4 days of antibiotics. If symptomatic improvement no lab abnormalities will DC home on p.o. antibiotics to follow-up with PCP. (2) Tobacco use Is this a current diagnosis for this admission?: No Plan: Advised on quitting. NicoDerm patch. (3) Obesity (BMI 30-39.9) Is this a current diagnosis for this admission?: No Plan: Diet and lifestyle modification recommended. (4) Drug abuse Is this a current diagnosis for this admission?: Yes Plan: UDS positive for opiates, benzodiazepines, cocaine, marijuana. Monitor for withdrawals. PT advised on quitting. Notes. Patient received opioids in the hospital which may have contributed to her positive opiate screen. (5) Hematuria Is this a current diagnosis for this admission?: Yes Plan: Denies any urinary symptoms. Currently menstruating. Outpatient PCP follow-up. Hemoglobin within normal limits.
[2018-12-07] MEDS: HYDROCODONE/ACETAMINOPHEN 5-325 MG TABLET PO PRN (19:50)
[2018-12-07] MEDS ORDERED: DOCUSATE SODIUM 100 MG CAPSULE PO ONE (21:00)
[2018-12-07 22:35] LABS: VANCOMYCIN,TROUGH 12.3 ug/mL (5.0-20.0)
[2018-12-08] MEDS: PIPERACILLIN SODIUM/TAZOBACTAM 3.375 GM in NORMAL SALINE 100 ML IV SCH ×4 (03:34→23:06)
[2018-12-08] MEDS: HYDROMORPHONE HCL INJ/PF 2 MG/ML AMPULE IV PRN ×6 (03:53→23:04)
[2018-12-08] MEDS: VANCOMYCIN HCL 1,500 MG in DEXTROSE 5%-WATER 250 ML IV SCH ×3 (05:40→23:00)
[2018-12-08] MEDS: FAMOTIDINE 20 MG TABLET PO SCH ×2 (05:40→18:04)
[2018-12-08 07:04] LABS: ABSOLUTE EOSINOPHILS # (AUTO) 0.1 10^3/uL (0.0-0.6); ABSOLUTE LYMPHOCYTES (AUTO) 1.8 10^3/uL (0.5-4.7); ABSOLUTE MONOCYTES (AUTO) 0.3 10^3/uL (0.1-1.4); ABSOLUTE NEUT (AUTO) 1.8 10^3/uL (1.7-8.2); BASOPHILS % (AUTO) 0.6 % (0-2); EOSINOPHILS % (AUTO) 1.8 % (0-6); HEMATOCRIT 33.3 % (36.0-47.0); HEMOGLOBIN 11.4 g/dL (12.0-15.5); LYMPHOCYTES % (AUTO) 44.8 % (13-45); MEAN CORPUSCULAR HEMOGLOBIN 32.8 pg (27.0-33.4); MEAN CORPUSCULAR HGB CONC 34.3 g/dL (32.0-36.0); MEAN CORPUSCULAR VOLUME 96 fl (80-97); MONOCYTES % (AUTO) 6.5 % (3-13); PLATELET COUNT 170 10^3/uL (150-450); RED BLOOD COUNT 3.48 10^6/uL (3.72-5.28); RED CELL DISTRIBUTION WIDTH 14.6 % (11.5-14.0); SEGMENTED NEUTROPHILS % (AUTO) 46.3 % (42-78); TOTAL CELLS COUNTED % (AUTO) 100 %
[2018-12-08 07:20] LABS: ALANINE AMINOTRANSFERASE 17 U/L (9-52); ALBUMIN 2.5 g/dL (3.5-5.0); ALKALINE PHOSPHATASE 74 U/L (38-126); ASPARTATE AMINO TRANSFERASE 23 U/L (14-36); BILIRUBIN,DIRECT 0.2 mg/dL (0.0-0.4); BILIRUBIN,TOTAL 0.2 mg/dL (0.2-1.3); BLOOD UREA NITROGEN 10 mg/dL (7-20); CALCIUM 8.3 mg/dL (8.4-10.2); GLUCOSE 102 mg/dL (75-110); TOTAL PROTEIN 5.1 g/dL (6.3-8.2)
[2018-12-08 07:25] LABS: CARBON DIOXIDE 25 mmol/L (22-30); CHLORIDE 111 mmol/L (98-107); SODIUM 137.4 mmol/L (137-145)
[2018-12-08 07:29] LABS: ANION GAP 1 (5-19)
[2018-12-08] MEDS: NICOTINE 21 MG/24 HR PATCH.TD24 TD SCH (09:32)
[2018-12-08] MEDS: DOCUSATE SODIUM 100 MG CAPSULE PO SCH ×2 (09:32→18:04)
[2018-12-08] MEDS: ENOXAPARIN SODIUM INJ 40 MG/0.4 ML DISP.SYRIN SUBCUT SCH (09:32)
[2018-12-08] MEDS: ONDANSETRON HCL INJ/PF 4 MG/2 ML SDV IV PRN ×3 (11:01→20:09)
--- NOTE | 2018-12-08 16:54 | PDOC PROGRESS REPORT ---
Subjective Progress Note for:: 12/08/18 Subjective:: ЕЛЕНА ESTRADA is a 33 year old female with history of anxiety disorder came to the emergency room with complaints of weeks ago with right arm swelling pain and redness. 2 days ago she removed the [place] splinter from the right index finger by poking around it and this morning wake up with judaism symptoms. Denies any fever. Complaining of pain in the right arm pain scale is 6 x 10. Received morphine IV in the emergency room. Patient denies any drug use. Denies any previous episodes. Denies any rashes in other places. Alert oriented communicating well at the time of examination no meningeal signs present. Patient and her fianc agreed to stay in the hospital for at least 2 days. 12/06/2018. No acute events overnight. Patient is still having right upper extremity pain, swelling and erythema has decreased since yesterday. Denies any fever, chills, nausea, vomiting, diarrhea, constipation or any urinary symptoms. UDS is positive for cocaine and marijuana, PT denies any IV drug abuse. 12/07/2018. As per my conversation with the nursing staff orvernight patient has been noticed to frequently go to smoke, each time returning the hallways and her room with a smell like marijuana smoke, nursing staff also noted that her visitors bring all alcohol to her room. Signs of infection on discharge also noted that the peripheral IV site on the left upper extremity. Otherwise patient has been cooperative and just complaining of persistent right upper extremity pain 5/5 only relieved with Dilaudid, morphine and hydrocodone are not effective. Denies any chest pain, nausea, vomiting, diarrhea, constipation or any urinary symptoms. 12/08/2018. No acute events overnight. Erythema and swelling has improved. Persistent tender to palpation but significant improvement since admission. Afebrile. Cultures negative Reason For Visit: CELLULITIS Physical Exam Vital Signs: Temp Pulse Resp BP Pulse Ox 97.9 F 57 L 16 110/57 L 98 12/08/18 16:16 12/08/18 16:16 12/08/18 16:16 12/08/18 16:16 12/08/18 16:16 Intake & Output 12/07/18 12/08/18 12/09/18 06:59 06:59 06:59 Intake Total 2336 3241 350 Output Total 0 3 Balance 2336 3238 350 Weight 132 kg 132.5 kg General appearance: PRESENT: no acute distress, well-developed, well-nourished Head exam: PRESENT: atraumatic, normocephalic Respiratory exam: PRESENT: clear to auscultation sindi. ABSENT: rales, rhonchi, wheezes Cardiovascular exam: PRESENT: RRR. ABSENT: diastolic murmur, rubs, systolic murmur GI/Abdominal exam: PRESENT: normal bowel sounds, soft. ABSENT: distended, guarding, mass, organolmegaly, rebound, tenderness Extremities exam: PRESENT: full ROM, other - Right elbow approximately distal to elbow, erythema, swelling resolving. No discharge. Neurovascularly intact.. ABSENT: calf tenderness, clubbing, pedal edema Neurological exam: PRESENT: alert, awake, oriented to person, oriented to place, oriented to time, oriented to situation, CN II-XII grossly intact. ABSENT: motor sensory deficit Psychiatric exam: PRESENT: appropriate affect, normal mood. ABSENT: homicidal ideation, suicidal ideation Skin exam: PRESENT: dry, intact, warm. ABSENT: cyanosis, rash Results Laboratory Results: 12/08/18 06:52 12/08/18 06:52 12/08/18 12/08/18 06:52 06:52 WBC 4.0 RBC 3.48 L Hgb 11.4 L Hct 33.3 L MCV 96 MCH 32.8 MCHC 34.3 RDW 14.6 H Plt Count 170 Seg Neutrophils % 46.3 Lymphocytes % 44.8 Monocytes % 6.5 Eosinophils % 1.8 Basophils % 0.6 Absolute Neutrophils 1.8 Absolute Lymphocytes 1.8 Absolute Monocytes 0.3 Absolute Eosinophils 0.1 Absolute Basophils 0.0 Sodium 137.4 Potassium 4.0 Chloride 111 H Carbon Dioxide 25 Anion Gap 1 L BUN 10 Creatinine 0.60 Est GFR ( Amer) > 60 Est GFR (Non-Af Amer) > 60 Glucose 102 Calcium 8.3 L Magnesium 1.9 Total Bilirubin 0.2 AST 23 ALT 17 Alkaline Phosphatase 74 Total Protein 5.1 L Albumin 2.5 L 12/05/18 12/05/18 12/05/18 16:20 16:20 21:10 Creatine Kinase 189 H 173 H Troponin I < 0.012 12/05/18 12/06/18 12/06/18 21:10 03:37 03:37 Creatine Kinase 126 Troponin I < 0.012 < 0.012 Impressions: Upper Extremity CT 12/05/18 00:00 IMPRESSION: Right forearm cellulitis Hand X-Ray 12/05/18 12:05 IMPRESSION: NEGATIVE STUDY OF THE RIGHT HAND. NO RADIOGRAPHIC EVIDENCE OF ACUTE INJURY. Venous Doppler Study 12/05/18 12:11 IMPRESSION: NO EVIDENCE DVT OR SVT RIGHT ARM. Assessment and Plan - Diagnosis (1) Right forearm cellulitis Is this a current diagnosis for this admission?: Yes Plan: Mild improvement. Tender to palpation over elbow and hand. Neurovascularly intact. No crepitus or sign of compartment syndrome. WBC within normal limits. Afebrile. Culture no growth. CT right upper extremity positive for cellulitis. Received Unasyn for 2 days. Switched to Vanco and Zosyn on 12/06/2018 after patient complained of worsening pain. Day 3 of Vanco and Zosyn. Total 5 days of antibiotics. If symptomatic improvement no lab abnormalities will DC home on p.o. antibiotics to follow-up with PCP. (2) Tobacco use Is this a current diagnosis for this admission?: No Plan: Advised on quitting. NicoDerm patch. (3) Obesity (BMI 30-39.9) Is this a current diagnosis for this admission?: No Plan: Diet and lifestyle modification recommended. (4) Drug abuse Is this a current diagnosis for this admission?: Yes Plan: UDS positive for opiates, benzodiazepines, cocaine, marijuana. Monitor for withdrawals. PT advised on quitting. Notes. Patient received opioids in the hospital which may have contributed to her positive opiate screen. (5) Hematuria Is this a current diagnosis for this admission?: Yes Plan: Denies any urinary symptoms. Currently menstruating. Outpatient PCP follow-up. Hemoglobin within normal limits.
[2018-12-09] MEDS: ONDANSETRON HCL INJ/PF 4 MG/2 ML SDV IV PRN ×2 (03:25→20:11)
[2018-12-09] MEDS: HYDROMORPHONE HCL INJ/PF 2 MG/ML AMPULE IV PRN ×5 (03:25→20:14)
[2018-12-09] MEDS: PIPERACILLIN SODIUM/TAZOBACTAM 3.375 GM in NORMAL SALINE 100 ML IV SCH (05:59)
[2018-12-09] MEDS: FAMOTIDINE 20 MG TABLET PO SCH ×2 (05:59→17:24)
[2018-12-09] MEDS: VANCOMYCIN HCL 1,500 MG in DEXTROSE 5%-WATER 250 ML IV SCH (06:43)
[2018-12-09] MEDS ORDERED: HYDROMORPHONE HCL INJ/PF 2 MG/ML AMPULE INJ PRN (08:39)
[2018-12-09] MEDS ORDERED: HYDROMORPHONE HCL INJ/PF 2 MG/ML AMPULE IV PRN (08:56)
[2018-12-09] MEDS: NICOTINE 21 MG/24 HR PATCH.TD24 TD SCH (09:35)
[2018-12-09] MEDS: DOCUSATE SODIUM 100 MG CAPSULE PO SCH ×2 (09:35→17:24)
[2018-12-09] MEDS: ENOXAPARIN SODIUM INJ 40 MG/0.4 ML DISP.SYRIN SUBCUT SCH (09:36)
[2018-12-09] MEDS: CLINDAMYCIN 900 MG/D5W RTU 900 MG/50 ML RTUPB IV SCH ×2 (14:22→21:52)
[2018-12-09] MEDS: OXYCODONE-ACETAMINOPHEN 5-325 MG TABLET PO PRN ×2 (14:22→21:58)
--- NOTE | 2018-12-09 18:41 | PDOC PROGRESS REPORT ---
Subjective Progress Note for:: 12/09/18 Subjective:: ЕЛЕНА ESTRADA is a 33 year old female with history of anxiety disorder came to the emergency room with complaints of weeks ago with right arm swelling pain and redness. 2 days ago she removed the [place] splinter from the right index finger by poking around it and this morning wake up with jainism symptoms. Denies any fever. Complaining of pain in the right arm pain scale is 6 x 10. Received morphine IV in the emergency room. Patient denies any drug use. Denies any previous episodes. Denies any rashes in other places. Alert oriented communicating well at the time of examination no meningeal signs present. Patient and her fianc agreed to stay in the hospital for at least 2 days. 12/06/2018. No acute events overnight. Patient is still having right upper extremity pain, swelling and erythema has decreased since yesterday. Denies any fever, chills, nausea, vomiting, diarrhea, constipation or any urinary symptoms. UDS is positive for cocaine and marijuana, PT denies any IV drug abuse. 12/07/2018. As per my conversation with the nursing staff orvernight patient has been noticed to frequently go to smoke, each time returning the hallways and her room with a smell like marijuana smoke, nursing staff also noted that her visitors bring all alcohol to her room. Signs of infection on discharge also noted that the peripheral IV site on the left upper extremity. Otherwise patient has been cooperative and just complaining of persistent right upper extremity pain 5/5 only relieved with Dilaudid, morphine and hydrocodone are not effective. Denies any chest pain, nausea, vomiting, diarrhea, constipation or any urinary symptoms. 12/08/2018. No acute events overnight. Erythema and swelling has improved. Persistent tender to palpation but significant improvement since admission. Afebrile. Cultures negative 12/09/2018. No acute events overnight. Still requiring IV analgesics. Afebrile, erythema resolved, persistent swelling and pain 5/5. Reason For Visit: CELLULITIS Physical Exam Vital Signs: Temp Pulse Resp BP Pulse Ox 97.8 F 56 L 18 111/76 100 12/09/18 15:48 12/09/18 15:48 12/09/18 15:48 12/09/18 15:48 12/09/18 15:48 Intake & Output 12/08/18 12/09/18 12/10/18 06:59 06:59 06:59 Intake Total 3241 1832 1391 Output Total 3 Balance 3238 1832 1391 Weight 132.5 kg 139.8 kg General appearance: PRESENT: no acute distress, morbidly obese, well-developed, well-nourished Head exam: PRESENT: atraumatic, normocephalic Respiratory exam: PRESENT: clear to auscultation sindi. ABSENT: rales, rhonchi, wheezes Cardiovascular exam: PRESENT: RRR. ABSENT: diastolic murmur, rubs, systolic murmur GI/Abdominal exam: PRESENT: normal bowel sounds, soft. ABSENT: distended, guarding, mass, organolmegaly, rebound, tenderness Extremities exam: PRESENT: full ROM, other - RUE swelling, TTP. no erythema. ABSENT: calf tenderness, clubbing, pedal edema Neurological exam: PRESENT: alert, awake, oriented to person, oriented to place, oriented to time, oriented to situation, CN II-XII grossly intact. ABSENT: motor sensory deficit Results Laboratory Results: 12/08/18 06:52 12/08/18 06:52 12/05/18 12/05/18 12/05/18 16:20 16:20 21:10 Creatine Kinase 189 H 173 H Troponin I < 0.012 12/05/18 12/06/18 12/06/18 21:10 03:37 03:37 Creatine Kinase 126 Troponin I < 0.012 < 0.012 Impressions: Upper Extremity CT 12/05/18 00:00 IMPRESSION: Right forearm cellulitis Hand X-Ray 12/05/18 12:05 IMPRESSION: NEGATIVE STUDY OF THE RIGHT HAND. NO RADIOGRAPHIC EVIDENCE OF ACUTE INJURY. Venous Doppler Study 12/05/18 12:11 IMPRESSION: NO EVIDENCE DVT OR SVT RIGHT ARM. Assessment and Plan - Diagnosis (1) Right forearm cellulitis Is this a current diagnosis for this admission?: Yes Plan: Mild improvement. Tender to palpation over elbow and hand. Neurovascularly int act. No crepitus or sign of compartment syndrome. Will order CK and MRI to r/o myositis/pyomyositis. WBC within normal limits. Afebrile. Culture no growth. CT right upper extremity positive for cellulitis. Received Unasyn for 2 days. Switched to Vanco and Zosyn on 12/06/2018 after patient complained of worsening pain. DC Ann and Delvin. Total 6 days of antibiotics. Switch to IV Clindamycin. If symptomatic improvement no lab abnormalities will DC home on p.o. antibiotics to follow-up with PCP. (2) Tobacco use Is this a current diagnosis for this admission?: No Plan: Advised on quitting. NicoDerm patch. (3) Obesity (BMI 30-39.9) Is this a current diagnosis for this admission?: No Plan: Diet and lifestyle modification recommended. (4) Drug abuse Is this a current diagnosis for this admission?: Yes Plan: UDS positive for opiates, benzodiazepines, cocaine, marijuana. Monitor for withdrawals. PT advised on quitting. Notes. Patient received opioids in the hospital which may have contributed to her positive opiate screen. (5) Hematuria Is this a current diagnosis for this admission?: Yes Plan: Denies any urinary symptoms. Currently menstruating. Outpatient PCP follow-up. Hemoglobin within normal limits.
--- NOTE | 2018-12-09 19:24 | RADIOLOGY REPORT (SQ) ---
EXAM DESCRIPTION: MRI RT UPPER EXTREMITY WITHOUT COMPLETED DATE/TIME: 12/09/2018 7:13 pm REASON FOR STUDY: RUE Cellultits, r/o myositis, pyomyositis COMPARISON: None. TECHNIQUE: Multiplanar imaging of the right forearm to include fat and fluid sensitive sequences. LIMITATIONS: None. FINDINGS: BONE MARROW: No marrow signal alteration. Specifically no marrow replacement or marrow ed tip. No evidence for osteomyelitis. No cortical break through. SOFT TISSUES: There is generalized soft tissue swelling along distal forearm. There is no focal absc ess. OTHER: No other significant finding. IMPRESSION: NO EVIDENCE FOR OSTEOMYELITIS. Generalized subcutaneous soft tissue swelling. No absce ss. TECHNICAL DOCUMENTATION: JOB ID: [id number] [employer]- All Rights Reserved Reading location - IP/workstation name: [email or web address]
[2018-12-10] MEDS: HYDROMORPHONE HCL INJ/PF 2 MG/ML AMPULE IV PRN ×2 (00:42→07:02)
[2018-12-10] MEDS: OXYCODONE-ACETAMINOPHEN 5-325 MG TABLET PO PRN ×2 (04:05→10:06)
[2018-12-10] MEDS: FAMOTIDINE 20 MG TABLET PO SCH (07:02)
[2018-12-10] MEDS: CLINDAMYCIN 900 MG/D5W RTU 900 MG/50 ML RTUPB IV SCH (07:03)
[2018-12-10 07:32] LABS: ABSOLUTE EOSINOPHILS # (AUTO) 0.1 10^3/uL (0.0-0.6); ABSOLUTE MONOCYTES (AUTO) 0.6 10^3/uL (0.1-1.4); BASOPHILS % (AUTO) 0.7 % (0-2); EOSINOPHILS % (AUTO) 1.4 % (0-6); HEMOGLOBIN 11.9 g/dL (12.0-15.5); LYMPHOCYTES % (AUTO) 34.4 % (13-45); MEAN CORPUSCULAR HEMOGLOBIN 32.3 pg (27.0-33.4); MEAN CORPUSCULAR HGB CONC 34.1 g/dL (32.0-36.0); MEAN CORPUSCULAR VOLUME 95 fl (80-97); MONOCYTES % (AUTO) 10.8 % (3-13); PLATELET COUNT 204 10^3/uL (150-450); RED BLOOD COUNT 3.69 10^6/uL (3.72-5.28); SEGMENTED NEUTROPHILS % (AUTO) 52.7 % (42-78); TOTAL CELLS COUNTED % (AUTO) 100 %; WHITE BLOOD COUNT 5.7 10^3/uL (4.0-10.5)
[2018-12-10 07:53] LABS: ALANINE AMINOTRANSFERASE 35 U/L (9-52); ALKALINE PHOSPHATASE 76 U/L (38-126); ANION GAP 6 (5-19); ASPARTATE AMINO TRANSFERASE 39 U/L (14-36); BILIRUBIN,DIRECT 0.2 mg/dL (0.0-0.4); BILIRUBIN,TOTAL 0.2 mg/dL (0.2-1.3); BLOOD UREA NITROGEN 11 mg/dL (7-20); CALCIUM 9.2 mg/dL (8.4-10.2); CARBON DIOXIDE 28 mmol/L (22-30); CHLORIDE 103 mmol/L (98-107); GLUCOSE 108 mg/dL (75-110); POTASSIUM 4.3 mmol/L (3.6-5.0); TOTAL PROTEIN 6.1 g/dL (6.3-8.2)
[2018-12-10] MEDS: ENOXAPARIN SODIUM INJ 40 MG/0.4 ML DISP.SYRIN SUBCUT SCH (09:32)
[2018-12-10] MEDS: NICOTINE 21 MG/24 HR PATCH.TD24 TD SCH (09:32)
[2018-12-10] MEDS: DOCUSATE SODIUM 100 MG CAPSULE PO SCH (09:32)
[2018-12-10 11:34] VITALS: BP 119/60
--- NOTE | 2018-12-10 17:48 | PDOC DISCHARGE SUMMARY ---
General - Admit/Disc Date/PCP Admission Date/Primary Care Provider: 12/05/18 14:39 Discharge Date: 12/10/18 - Additional Information Resuscitation Status: Full Code Discharge Diet: Regular Discharge Activity: Activity As Tolerated Prescriptions: Oxycodone HCl/Acetaminophen [Percocet 5-325 mg Tablet] 1 tab PO Q6HP PRN 5 Days #20 tablet PRN Reason: Clindamycin HCl 300 mg PO QID #16 capsule Home Medications: Clindamycin HCl 300 mg PO QID #16 capsule 12/10/18 Oxycodone HCl/Acetaminophen [Percocet 5-325 mg Tablet] 1 tab PO Q6HP PRN 5 Days #20 tablet 12/10/18 History of Present Illness Patient complains of: Right forearm swelling and redness History of Present Illness: ЕЛЕНА ESTRADA is a 33 year old female with history of anxiety disorder came to the emergency room with complaints of weeks ago with right arm swelling pain and redness. 2 days ago she removed the [place] splinter from the right index finger by poking around it and this morning wake up with congregational symptoms. Denies any fever. Complaining of pain in the right arm pain scale is 6 x 10. Received morphine IV in the emergency room. Patient denies any drug use. Denies any p revious episodes. Denies any rashes in other places. Alert oriented communicating well at the time of examination no meningeal signs present. Patient and her fianc agreed to stay in the hospital for at least 2 days. Hospital Course Hospital Course: Patient was admitted to [facility] on telemetry. She was started on broad-spectrum IV clindamycin after blood cultures x2 were obtained. She continued to have some significant pain requiring IV Dilaudid. Erythema and swelling did improve. Blood cultures remain normal. She still has some moderate swelling and because of her intense pain, MRI of the forearm was done. Physical Exam Vital Signs: Temp Pulse Resp BP Pulse Ox 97.4 F 63 18 119/60 97 12/10/18 11:33 12/10/18 11:33 12/10/18 11:33 12/10/18 11:33 12/10/18 11:33 Intake & Output 12/09/18 12/10/18 12/11/18 06:59 06:59 06:59 Intake Total 1832 1778 50 Balance 1832 1778 50 Weight 139.8 kg 137.6 kg General appearance: PRESENT: no acute distress, obese, well-developed, well- nourished Head exam: PRESENT: atraumatic, normocephalic Eye exam: PRESENT: conjunctiva pink, EOMI, PERRLA. ABSENT: scleral icterus Ear exam: PRESENT: normal external ear exam Mouth exam: PRESENT: moist, tongue midline Neck exam: ABSENT: carotid bruit, JVD, lymphadenopathy, thyromegaly Respiratory exam: PRESENT: clear to auscultation sindi. ABSENT: rales, rhonchi, wheezes Cardiovascular exam: PRESENT: RRR. ABSENT: diastolic murmur, rubs, systolic murmur Pulses: PRESENT: normal dorsalis pedis pul Vascular exam: PRESENT: normal capillary refill GI/Abdominal exam: PRESENT: normal bowel sounds, soft. ABSENT: distended, guarding, mass, organolmegaly, rebound, tenderness Rectal exam: PRESENT: deferred Extremities exam: PRESENT: full ROM. ABSENT: calf tenderness, clubbing, pedal edema Musculoskeletal exam: PRESENT: ambulatory Neurological exam: PRESENT: alert, awake, oriented to person, oriented to place, oriented to time, oriented to situation, CN II-XII grossly intact. ABSENT: mo tor sensory deficit Psychiatric exam: PRESENT: appropriate affect, normal mood. ABSENT: homicidal ideation, suicidal ideation Skin exam: PRESENT: dry, intact, warm. ABSENT: cyanosis, rash Results Laboratory Results: 12/10/18 07:02 12/10/18 07:02 12/10/18 12/10/18 07:02 07:02 WBC 5.7 RBC 3.69 L Hgb 11.9 L Hct 35.0 L MCV 95 MCH 32.3 MCHC 34.1 RDW 14.0 Plt Count 204 Seg Neutrophils % 52.7 Lymphocytes % 34.4 Monocytes % 10.8 Eosinophils % 1.4 Basophils % 0.7 Absolute Neutrophils 3.0 Absolute Lymphocytes 2.0 Absolute Monocytes 0.6 Absolute Eosinophils 0.1 Absolute Basophils 0.0 Sodium 137.0 Potassium 4.3 Chloride 103 Carbon Dioxide 28 Anion Gap 6 BUN 11 Creatinine 0.64 Est GFR ( Amer) > 60 Est GFR (Non-Af Amer) > 60 Glucose 108 Calcium 9.2 Total Bilirubin 0.2 AST 39 H ALT 35 Alkaline Phosphatase 76 Total Protein 6.1 L Albumin 3.0 L 12/05/18 12:12 Blood Blood Culture - Final NO GROWTH IN 5 DAYS 12/05/18 12/05/18 12/05/18 16:20 16:20 21:10 Creatine Kinase 189 H 173 H Troponin I < 0.012 12/05/18 12/06/18 12/06/18 21:10 03:37 03:37 Creatine Kinase 126 Troponin I < 0.012 < 0.012 12/09/18 18:40 Creatine Kinase 40 Troponin I Impressions: Upper Extremity CT 12/05/18 00:00 IMPRESSION: Right forearm cellulitis Hand X-Ray 12/05/18 12:05 IMPRESSION: NEGATIVE STUDY OF THE RIGHT HAND. NO RADIOGRAPHIC EVIDENCE OF ACUTE INJURY. Venous Doppler Study 12/05/18 12:11 IMPRESSION: NO EVIDENCE DVT OR SVT RIGHT ARM. Upper Extremity MRI 12/09/18 00:00 IMPRESSION: NO EVIDENCE FOR OSTEOMYELITIS. Generalized subcutaneous soft tissue swelling. No abscess. Qualifiers - * PATIENT BEING DISCHARGED WITH ANY OF THE FOLLOWING DIAGNOSIS: No Plan Discharge Plan: Home on oral antibiotics Time Spent: Less than 30 Minutes
== END 2018-12-10 11:44 | disposition home or self-care (01) | DRG 603 ==
LOC: ER 11:22 → EH 14:39 → 3S 20:25 → 5 12-10 03:54
PROVIDERS: ADMIT Internal Medicine; ATTEND Internal Medicine
DX: L03.113 Cellulitis of right upper limb (principal); F17.200 Nicotine dependence, unspecified, uncomplicated; F41.9 Anxiety disorder, unspecified; F14.10 Cocaine abuse, uncomplicated; F12.10 Cannabis abuse, uncomplicated; F13.10 Sedative, hypnotic or anxiolytic abuse, uncomplicated; R31.9 Hematuria, unspecified; E66.9 Obesity, unspecified; Z88.8 Allergy status to other drugs, medicaments and biological substances; Z88.1 Allergy status to other antibiotic agents; Z88.2 Allergy status to sulfonamides; Z90.49 Acquired absence of other specified parts of digestive tract; Z68.37 Body mass index [BMI] 37.0-37.9, adult
CPT/HCPCS: 36415; 80053; 80061; 80202; 80307; 80353; 80361; 81001; 82550; 83036; 83735; 84439; 84443; 84481; 84484; 85025; 87040; 93971; 96365; 96375; 99285; G0480; J1170; J1650; J2270; J2405; J2543; J3370; J7030; J7060

== ENCOUNTER 2019-02-18 07:41 | Observation (INO) | payer SELFPAY ==
[2019-02-18 08:30] LABS: VENOUS BLOOD BASE EXCESS -1.3 mmol/L; VENOUS BLOOD HCO3 23.3 mmol/L (20-32); VENOUS BLOOD PCO2 38.6 mmHg (35-63); VENOUS BLOOD PH 7.4 (7.30-7.42)
[2019-02-18 08:40] LABS: PROTHROMBIN TIME 14.2 SEC (11.4-15.4)
[2019-02-18 08:43] LABS: ALANINE AMINOTRANSFERASE 10 U/L (9-52); ALBUMIN 3.4 g/dL (3.5-5.0); ALKALINE PHOSPHATASE 116 U/L (38-126); ANION GAP 11 (5-19); ASPARTATE AMINO TRANSFERASE 22 U/L (14-36); BILIRUBIN,DIRECT 0.3 mg/dL (0.0-0.4); BILIRUBIN,TOTAL 0.9 mg/dL (0.2-1.3); BLOOD UREA NITROGEN 6 mg/dL (7-20); CALCIUM 9.1 mg/dL (8.4-10.2); CARBON DIOXIDE 22 mmol/L (22-30); CHLORIDE 104 mmol/L (98-107); GLUCOSE 116 mg/dL (75-110); POTASSIUM 3.5 mmol/L (3.6-5.0); SODIUM 137.1 mmol/L (137-145); TOTAL PROTEIN 7.3 g/dL (6.3-8.2)
[2019-02-18 08:45] LABS: HEMATOCRIT 35.4 % (36.0-47.0); HEMOGLOBIN 11.8 g/dL (12.0-15.5); MEAN CORPUSCULAR HEMOGLOBIN 28.8 pg (27.0-33.4); MEAN CORPUSCULAR HGB CONC 33.2 g/dL (32.0-36.0); MEAN CORPUSCULAR VOLUME 87 fl (80-97); PLATELET COUNT 409 10^3/uL (150-450); RED BLOOD COUNT 4.09 10^6/uL (3.72-5.28); WHITE BLOOD COUNT 21.4 10^3/uL (4.0-10.5)
[2019-02-18 09:02] LABS: ABSOLUTE LYMPHOCYTES# (MANUAL) 1.3 10^3/uL (0.5-4.7); ABSOLUTE MONOCYTES # (MANUAL) 0.2 10^3/uL (0.1-1.4); BASOPHILS % (MANUAL) 1 % (0-2); EOSINOPHILS % (MANUAL) 1 % (0-6); LYMPHOCYTES % (MANUAL) 6 % (13-45); MONOCYTES % (MANUAL) 1 % (3-13); SEGMENTED NEUTROPHILS % (MAN) 91 % (42-78); TOTAL CELLS COUNTED 100
[2019-02-18 09:03] LABS: ANISOCYTOSIS SLIGHT; PLATELET CLUMPS PRESENT; PLATELET COMMENT ADEQUATE
[2019-02-18] MEDS ORDERED: MORPHINE SULFATE 10 MG/ML INJ IM ONE (09:03)
[2019-02-18] MEDS ORDERED: MORPHINE SULFATE 10 MG/ML INJ IV ONE ×2 (09:06→10:03)
--- NOTE | 2019-02-18 09:09 | ER Document Report ---
ED Extremity Problem, Upper - General Chief Complaint: Arm Problem Stated Complaint: LEFT ARM INJURY Time Seen by Provider: 02/18/19 08:14 Notes: 34-year-old female with no known medical history presents to the emergency department with chief complaint of right hand/wrist/forearm swelling x3 days. She is an IV drug user, last use 36 hours ago. She noticed it about 3 days ago but was "too scared to say anything". She complains of acute pain. Denies fevers or chills, denies nausea or vomiting, denies acute shortness of breath or chest pain. Patient has difficulty moving her fingers as they are very tight and is unable to supinate her left forearm. TRAVEL OUTSIDE OF THE [place] IN LAST 30 DAYS: No - Related Data Allergies/Adverse Reactions: amoxicillin trihydrate [From Augmentin] Allergy (Intermediate, Verified 02/18/19 07:48) VOMITING Potassium Clavulanate * [From Augmentin] Allergy (Intermediate, Verified 02/18/19 07:48) VOMITING Sulfa (Sulfonamide Antibiotics) Allergy (Verified 02/18/19 07:48) Past Medical History - Social History Smoking Status: Current Every Day Smoker Chew tobacco use (# tins/day): No Frequency of alcohol use: None Drug Abuse: Heroin, Methamphetamine Family History: Reviewed & Not Pertinent Patient has suicidal ideation: No Patient has homicidal ideation: No Pulmonary Medical History: Reports: Hx Bronchitis - chronic problem, Hx Pneumonia Renal/ Medical History: Denies: Hx Peritoneal Dialysis Psychiatric Medical History: Reports: Hx Anxiety, Hx Depression Past Surgical History: Reports: Hx Appendectomy - Immunizations Hx Diphtheria, Pertussis, Tetanus Vaccination: Yes - 2008 Hx Pneumococcal Vaccination: 05/17/11 Review of Systems - Review of Systems Constitutional: See HPI EENT: No symptoms reported Cardiovascular: See HPI Respiratory: No symptoms reported Gastrointestinal: See HPI Genitourinary: No symptoms reported Female Genitourinary: No symptoms reported Musculoskeletal: No symptoms reported Skin: See HPI Hematologic/Lymphatic: No symptoms reported Neurological/Psychological: No symptoms reported Physical Exam - Vital signs Vitals: Temp Pulse Resp BP Pulse Ox 98.6 F 110 H 12 135/75 H 98 02/18/19 07:53 02/18/19 07:53 02/18/19 07:53 02/18/19 07:53 02/18/19 07:53 - Notes Notes: PHYSICAL EXAMINATION: Reviewed vital signs and charting by RN GENERAL: Alert, interacts well. Moderate distress. HEAD: Normocephalic, atraumatic. EYES: Pupils equal and round. Extraocular movements intact. ENT: Oral mucosa moist, tongue midline. NECK: Full range of motion. Trachea midline. LUNGS: Clear to auscultation bilaterally, no wheezes, rales, or rhonchi. No respiratory distress. HEART: Regular rate and rhythm. No murmur ABDOMEN: soft, non-tender. No distention. Bowel sounds present EXTREMITIES: Moves all 4 extremities spontaneously. Left distal upper extremity significant erythema up to the middle forearm, very tense, 3+ nonpitting edema of the left upper extremity delayed cap refill present, difficulty palpating her radial pulse due to the edema significant pain when manipulating the arm, patient cannot make a fist but can wiggle her fingers and has strength to active resistance in all digits PSYCH: Normal affect, normal mood. SKIN: Warm, dry, normal turgor. No rashes or lesions noted. Course - Re-evaluation Re-evalutation: 02/18/19 09:08 Patient presents in acute distress with significant left distal upper extremity swelling most likely secondary to IV drug abuse. Septic work-up initiated. [place] normal, CBC pending. CT of the left arm ordered. Pain control with morphine IV 4 mg once. 02/18/19 10:50 CT of the upper extremity completed which showed a significant cellulitis up to the mid forearm. Patient has received vancomycin 1.5 g IV once. No evidence of abscess or air seen on CT to be concerned about gangrene. I called Dr. Bansal, hospitalist, who accepted the patient for observation. - Vital Signs Vital signs: Temp Pulse Resp BP Pulse Ox 98.6 F 110 H 12 135/75 H 98 02/18/19 07:53 02/18/19 07:53 02/18/19 07:53 02/18/19 07:53 02/18/19 07:53 - Laboratory Result Diagrams: 02/18/19 08:14 02/18/19 08:14 Laboratory results interpreted by me: 02/18/19 02/18/19 08:14 08:14 WBC 21.4 H Hgb 11.8 L Hct 35.4 L RDW 15.0 H Seg Neuts % (Manual) 91 H Lymphocytes % (Manual) 6 L Monocytes % (Manual) 1 L Abs Neuts (Manual) 19.5 H Potassium 3.5 L BUN 6 L Creatinine 0.48 L Glucose 116 H Albumin 3.4 L Discharge - Discharge Clinical Impression: Drug abuse, SIRS (systemic inflammatory response syndrome) Cellulitis Qualifiers: Site of cellulitis: extremity Site of cellulitis of extremity: upper extremity Laterality: left Qualified Code(s): L03.114 - Cellulitis of left upper limb Condition: Stable Disposition: ADMITTED OBSERVATION Admitting Provider: Nimisha (Hospitalist) Unit Admitted: Medical Floor
[2019-02-18] MEDS ORDERED: VANCOMYCIN HCL INJ 1000 MG VIAL IV ONE (09:47)
--- NOTE | 2019-02-18 10:10 | RADIOLOGY REPORT (SQ) ---
EXAM DESCRIPTION: CT LT UPPER EXTREMITY WITH COMPLETED DATE/TIME: 02/18/2019 9:59 am REASON FOR STUDY: RUE swelling after heroin injection COMPARISON: None. TECHNIQUE: Axial imaging performed through the left forearm with reformatted coronal and sagittal im aging windowed for bone and soft tissues. Images saved to PACS. 3D IMAGING: Were 3D images as MIP, SSD, or volume rendering performed at the work station? no All CT scanners at this facility use dose modulation, iterative reconstruction, and/or weight based d osing when appropriate to reduce radiation dose to as low as reasonably achievable (ALARA). [facility]: Dose Right [facility]: CareDose [facility]: Dose Right [facility]: Teradose 4D [facility]: [employer] LIMITATIONS: None. RADIATION DOSE: CT Rad equipment meets quality standard of care and radiation dose reduction techniq ues were employed. CTDIvol: 2.6 mGy. DLP: 138 mGy-cm. mGy. FINDINGS: SOFT TISSUES: Diffuse left forearm cellulitis is present, from the dorsum of the hand thro ugh the proximal edge of the field of view of the elbow. Skin thickening, subcutaneous edema is pres ent. There is some fluid tracking along the superficial aspect of the forearm extensor compartment w ithout well-circumscribed abscess. No retained radiopaque foreign body. BONES: No acute fracture. No dislocation. MINERALIZATION: Normal. OTHER: No other significant finding. IMPRESSION: Diffuse left forearm cellulitis TECHNICAL DOCUMENTATION: JOB ID: [id number] Quality ID # [id number]: Final reports with documentation of one or more dose reduction techniques (e.g., Au tomated exposure control, adjustment of the mA and/or kV according to patient size, use of iterative reconstruction technique) 2010 [employer]- All Rights Reserved Reading location - IP/workstation name: [email or web address]
[2019-02-18] MEDS ORDERED: MORPHINE SULFATE 10 MG/ML INJ IV PRN (11:18)
[2019-02-18] MEDS ORDERED: ACETAMINOPHEN 325 MG TABLET PO PRN (11:19)
[2019-02-18] MEDS ORDERED: POTASSIUM CHLORIDE 10 MEQ CAPSULE.ER PO ONE (11:20)
[2019-02-18] MEDS ORDERED: VANCOMYCIN HCL 0 MG in DEXTROSE 5%-WATER 250 ML IV NR (11:30)
[2019-02-18] MEDS: KETOROLAC TROMETHAMINE INJ/PF 30 MG/1 ML SDV IV PRN ×2 (11:51→18:21)
[2019-02-18] MEDS: PIPERACILLIN SODIUM/TAZOBACTAM 3.375 GM in NORMAL SALINE 100 ML IV SCH ×2 (12:17→20:44)
--- NOTE | 2019-02-18 15:12 | PDOC H&P ---
History of Present Illness Admission Date/PCP: 02/18/19 11:05 Patient complains of: left arm swelling History of Present Illness: ЕЛЕНА ESTRADA is a 34 year old female with no significant past medical history aside from anxiety and substance abuse who presented with left arm pain and swelling. Patient admits to IV heroin use. She says that she has been using Iv heroin with a friend and the last use was 2 days ago. She says that he started having tenderness and erythema on the injection site on the left arm. It continued to progress and over the last 24 to 48 hours has spread and involved the entire left arm. She is complaining of severe pain as well. She had some chills but denies fever. Denies chest pain shortness of breath. In the ER, she was noted to have an extensive left arm cellulitis. CT of the left arm did not show any abscess or signs suggestive of necrotizing fasciitis. She will be admitted for IV antibiotic therapy. Past Medical History Pulmonary Medical History: Reports: Bronchitis - chronic problem, Pneumonia Psychiatric Medical History: Reports: Depression Past Surgical History Past Surgical History: Reports: Appendectomy Social History Smoking Status: Current Every Day Smoker Frequency of Alcohol Use: None Hx Recreational Drug Use: No Drugs: None Hx Prescription Drug Abuse: No Family History Family History: Reviewed & Not Pertinent Parental Family History Reviewed: Yes - no premature CAD Children Family History Reviewed: No Sibling(s) Family History Reviewed.: No Medication/Allergy Home Medications: No Home Medications 02/18/19 Allergies/Adverse Reactions: amoxicillin trihydrate [From Augmentin] Allergy (Intermediate, Verified 02/18/19 07:48) VOMITING Potassium Clavulanate * [From Augmentin] Allergy (Intermediate, Verified 02/18/19 07:48) VOMITING Sulfa (Sulfonamide Antibiotics) Allergy (Verified 02/18/19 07:48) Review of Systems All systems: reviewed and no additional remarkable complaints except as stated - As mentioned in HPI Physical Exam Vital Signs: Temp Pulse Resp BP Pulse Ox 98.6 F 110 H 29 H 111/65 97 02/18/19 07:53 02/18/19 07:53 02/18/19 09:01 02/18/19 09:01 02/18/19 09:01 Intake & Output 02/17/19 02/18/19 02/19/19 06:59 06:59 06:59 Weight 275 lb 12.772 oz General appearance: PRESENT: no acute distress, well-developed, well-nourished Head exam: PRESENT: atraumatic, normocephalic Eye exam: PRESENT: conjunctiva pink, EOMI, PERRLA. ABSENT: scleral icterus Ear exam: PRESENT: normal external ear exam Mouth exam: PRESENT: moist, tongue midline Neck exam: ABSENT: carotid bruit, JVD, lymphadenopathy, thyromegaly Respiratory exam: PRESENT: clear to auscultation sindi. ABSENT: rales, rhonchi, wheezes Cardiovascular exam: PRESENT: RRR. ABSENT: diastolic murmur, rubs, systolic murmur Pulses: PRESENT: normal dorsalis pedis pul GI/Abdominal exam: PRESENT: normal bowel sounds, soft. ABSENT: distended, guarding, mass, organolmegaly, rebound, tenderness Rectal exam: PRESENT: deferred Extremities exam: PRESENT: other - Extensive erythema, swelling and tenderness on the left arm with few small blisters on the left hand Neurological exam: PRESENT: alert, awake, oriented to person, oriented to place, oriented to time, oriented to situation, CN II-XII grossly intact. ABSENT: motor sensory deficit Results Laboratory Results: 02/18/19 08:14 02/18/19 08:14 02/18/19 02/18/19 02/18/19 08:14 08:14 08:14 WBC 21.4 H RBC 4.09 Hgb 11.8 L Hct 35.4 L MCV 87 MCH 28.8 MCHC 33.2 RDW 15.0 H Plt Count 409 Seg Neutrophils % Not Reportable Lymphocytes % Not Reportable Monocytes % Not Reportable Eosinophils % Not Reportable Basophils % Not Reportable Absolute Neutrophils Not Reportable Absolute Lymphocytes Not Reportable Absolute Monocytes Not Reportable Absolute Eosinophils Not Reportable Absolute Basophils Not Reportable VBG pH VBG pCO2 VBG HCO3 VBG Base Excess Sodium 137.1 Potassium 3.5 L Chloride 104 Carbon Dioxide 22 Anion Gap 11 BUN 6 L Creatinine 0.48 L Est GFR ( Amer) > 60 Est GFR (Non-Af Amer) > 60 Glucose 116 H Lactic Acid Calcium 9.1 Total Bilirubin 0.9 AST 22 ALT 10 Alkaline Phosphatase 116 Total Protein 7.3 Albumin 3.4 L Serum HCG, Qual NEGATIVE 02/18/19 02/18/19 08:14 08:14 WBC RBC Hgb Hct MCV MCH MCHC RDW Plt Count Seg Neutrophils % Lymphocytes % Monocytes % Eosinophils % Basophils % Absolute Neutrophils Absolute Lymphocytes Absolute Monocytes Absolute Eosinophils Absolute Basophils VBG pH 7.40 VBG pCO2 38.6 VBG HCO3 23.3 VBG Base Excess -1.3 Sodium Potassium Chloride Carbon Dioxide Anion Gap BUN Creatinine Est GFR ( Amer) Est GFR (Non-Af Amer) Glucose Lactic Acid 1.3 Calcium Total Bilirubin AST ALT Alkaline Phosphatase Total Protein Albumin Serum HCG, Qual Impressions: Upper Extremity CT 02/18/19 09:01 IMPRESSION: Diffuse left forearm cellulitis Assessment and Plan - Diagnosis (1) Cellulitis of left upper extremity Is this a current diagnosis for this admission?: Yes Plan: Start vancomycin and Zosyn. CT of the left arm noted as mentioned. We will add morphine and Toradol as needed for pain. (2) Substance abuse Is this a current diagnosis for this admission?: Yes Plan: Patient admits to IV heroin use. She also says she uses marijuana. Counseled in length. - Time Time Spent with patient: 25-34 minutes
--- NOTE | 2019-02-18 15:13 | ADVANCED CARE ---
- Diagnosis (1) Cellulitis of left upper extremity Diagnosis Current: Yes (2) Drug abuse Diagnosis Current: Yes Resuscitation Status: Full Code Discussion: Discussed with patient. She is a full code and she says she prefers chest compressions, defibrillation or mechanical ventilation if needed. She says that her brother, Santo is her surrogate medical decision maker.
[2019-02-18] MEDS ORDERED: VANCOMYCIN HCL 1,500 MG in DEXTROSE 5%-WATER 250 ML IV SCH (18:00)
[2019-02-18] MEDS ORDERED: HYDROMORPHONE HCL INJ/PF 2 MG/ML AMPULE ONE (18:44)
[2019-02-18] MEDS ORDERED: HYDROMORPHONE HCL INJ/PF 2 MG/ML AMPULE IV ONE (19:15)
--- NOTE | 2019-02-18 20:03 | PDOC TRANSFER SUMMARY ---
General Admission Date/PCP: 02/18/19 11:05 Admission Date: 02/18/19 Transfer Date: 02/18/19 Accepting Facility: [facility] Resuscitation Status: Full Code - Transfer Diagnosis (1) Compartment syndrome of forearm Is this a current diagnosis for this admission?: Yes Diagnosis Summary: Patient admitted by medicine for left lower extremity cellulitis complicated by IV drug use, she is started on symptomatic management and IV antibiotics but forearm found to be concerning for compartment syndrome. Surgical consultation confirms and recommends transfer to tertiary care given the lack of orthopedic surgical support. Patient remains in stable but unimproved condition requiring urgent transfer to tertiary care for unresolved compartment syndrome. She has been graciously accepted by at [facility]. (2) Cellulitis of left upper extremity Is this a current diagnosis for this admission?: Yes Diagnosis Summary: Please see #1 (3) Drug abuse Is this a current diagnosis for this admission?: Yes Diagnosis Summary: Supportive measures, anticipate opiate withdrawal. - Transfer Medications Home Medications: No Home Medications 02/18/19 Transfer Medications: Current Medications Acetaminophen (Tylenol 325 Mg Tablet) 650 mg PO Q4HP PRN PRN Reason: for fever Stop: 03/20/19 11:18 Heparin Sodium (Porcine) (Heparin Inj 5,000 Units/Ml 1 Ml Syringe) 5,000 unit SUBCUT Q12 ZAHRA Stop: 03/20/19 21:59 Piperacillin Sod/Tazobactam (Sod 3.375 gm/ Sodium Chloride) 100 mls @ 200 mls/hr IV Q6 ZAHRA Stop: 02/25/19 11:59 Last Infusion: 02/18/19 12:49 Dose: Infused Documented by: Vancomycin HCl 1,500 mg/ (Dextrose) 250 mls @ 166.667 mls/hr IV Q8A ZAHRA Stop: 02/25/19 17:59 Last Admin: 02/18/19 18:20 Dose: 166 mls/hr, 166 mls/hr Documented by: Ketorolac Tromethamine (Toradol Inj/Pf 30 Mg/1 Ml Sdv) 30 mg IV Q6HP PRN PRN Reason: FOR PAIN Stop: 02/23/19 11:17 Last Admin: 02/18/19 18:21 Dose: 30 mg Documented by: Morphine Sulfate (Morphine 10 Mg/Ml Inj) 4 mg IV Q4HP PRN PRN Reason: FOR PAIN Stop: 02/25/19 11:17 Last Admin: 02/18/19 15:12 Dose: 4 mg Documented by: Sodium Chloride (Saline Flush 2.5 Ml Monoject Prefil Syrin) 2.5 ml IV Q8 ZAHRA Stop: 03/20/19 13:59 Last Admin: 02/18/19 15:13 Dose: Not Given Documented by: - Allergies Allergies/Adverse Reactions: amoxicillin trihydrate [From Augmentin] Allergy (Intermediate, Verified 02/18/19 07:48) VOMITING Potassium Clavulanate * [From Augmentin] Allergy (Intermediate, Verified 02/18/19 07:48) VOMITING Sulfa (Sulfonamide Antibiotics) Allergy (Verified 02/18/19 07:48) Hospital Course Hospital Course: Patient admitted by medicine for left lower extremity cellulitis complicated by IV drug use, she is started on symptomatic management and IV antibiotics but forearm found to be concerning for compartment syndrome. Surgical consultation confirms and recommends transfer to tertiary care given the lack of orthopedic surgical support. Patient remains in stable but unimproved condition requiring urgent transfer to tertiary care for unresolved compartment syndrome. She has been graciously accepted by at [facility]. Physical Exam Vital Signs: Temp Pulse Resp BP Pulse Ox 98.6 F 110 H 22 H 114/75 100 02/18/19 07:53 02/18/19 07:53 02/18/19 12:01 02/18/19 12:01 02/18/19 12:01 Intake & Output 02/17/19 02/18/19 02/19/19 11:59 11:59 11:59 Intake Total 100 Balance 100 Weight 125.1 kg General appearance: PRESENT: mild distress Pulses: PRESENT: normal radial pulses Musculoskeletal exam: ABSENT: full ROM Results Laboratory Results: 02/18/19 08:14 02/18/19 08:14 02/18/19 02/18/19 02/18/19 08:14 08:14 08:14 WBC 21.4 H RBC 4.09 Hgb 11.8 L Hct 35.4 L MCV 87 MCH 28.8 MCHC 33.2 RDW 15.0 H Plt Count 409 Seg Neutrophils % Not Reportable Lymphocytes % Not Reportable Monocytes % Not Reportable Eosinophils % Not Reportable Basophils % Not Reportable Absolute Neutrophils Not Reportable Absolute Lymphocytes Not Reportable Absolute Monocytes Not Reportable Absolute Eosinophils Not Reportable Absolute Basophils Not Reportable VBG pH VBG pCO2 VBG HCO3 VBG Base Excess Sodium 137.1 Potassium 3.5 L Chloride 104 Carbon Dioxide 22 Anion Gap 11 BUN 6 L Creatinine 0.48 L Est GFR ( Amer) > 60 Est GFR (Non-Af Amer) > 60 Glucose 116 H Lactic Acid Calcium 9.1 Total Bilirubin 0.9 AST 22 ALT 10 Alkaline Phosphatase 116 Total Protein 7.3 Albumin 3.4 L Serum HCG, Qual NEGATIVE 02/18/19 02/18/19 08:14 08:14 WBC RBC Hgb Hct MCV MCH MCHC RDW Plt Count Seg Neutrophils % Lymphocytes % Monocytes % Eosinophils % Basophils % Absolute Neutrophils Absolute Lymphocytes Absolute Monocytes Absolute Eosinophils Absolute Basophils VBG pH 7.40 VBG pCO2 38.6 VBG HCO3 23.3 VBG Base Excess -1.3 Sodium Potassium Chloride Carbon Dioxide Anion Gap BUN Creatinine Est GFR ( Amer) Est GFR (Non-Af Amer) Glucose Lactic Acid 1.3 Calcium Total Bilirubin AST ALT Alkaline Phosphatase Total Protein Albumin Serum HCG, Qual Impressions: Upper Extremity CT 02/18/19 09:01 IMPRESSION: Diffuse left forearm cellulitis Plan Discharge Plan: Patient admitted by medicine for left lower extremity cellulitis complicated by IV drug use, she is started on symptomatic management and IV antibiotics but forearm found to be concerning for compartment syndrome. Surgical consultation confirms and recommends transfer to tertiary care given the lack of orthopedic surgical support. Patient remains in stable but unimproved condition requiring urgent transfer to tertiary care for unresolved compartment syndrome. She has been graciously accepted by at [facility]. Time Spent: Less than 30 Minutes
--- NOTE | 2019-02-18 20:16 | PDOC CONSULTATION ---
Consultation Consult Date: 02/18/19 Provider Consulted: JEANINE ARRIAGA Consult reason:: Infection left arm rule out surgical problem History of Present Illness Admission Date/PCP: 02/18/19 11:05 Patient complains of: Left arm pain worsening History of Present Illness: ЕЛЕНА ESTRADA is a 34 year old female 34-year-old female admitted to the emergency department via ground rescue then to the hospitalist service early this morning for deep extensive soft tissue cellulitis of the left arm at site of IV drug abuse, specifically injection of heroin around the heel head. The patient presented with low-grade tachycardia, leukocytosis 24,000. She had a CT scan of the upper extremity which revealed the subcutaneous edema but no focal abscess. Patient was started on intravenous antibiotics, but had persisting pain, swelling, and tenderness at the day. Dr. Arriaga was asked to see the patient approximately 6 PM, and saw the patient shortly thereafter. Assessment was made that the patient has a very hostile and may require incision drainage, possible fasciotomy for compartment syndrome. Past Medical History Pulmonary Medical History: Reports: Bronchitis - chronic problem, Pneumonia Psychiatric Medical History: Reports: Depression Past Surgical History Past Surgical History: Reports: Appendectomy Social History Smoking Status: Current Every Day Smoker Frequency of Alcohol Use: None Hx Recreational Drug Use: No Drugs: None Hx Prescription Drug Abuse: No - Advance Directive Resuscitation Status: Full Code Family History Family History: None, Reviewed & Not Pertinent Parental Family History Reviewed: No Children Family History Reviewed: No Sibling(s) Family History Reviewed.: No Medication/Allergy Home Medications: No Home Medications 02/18/19 Allergies/Adverse Reactions: amoxicillin trihydrate [From Augmentin] Allergy (Intermediate, Verified 02/18/19 07:48) VOMITING Potassium Clavulanate * [From Augmentin] Allergy (Intermediate, Verified 02/18/19 07:48) VOMITING Sulfa (Sulfonamide Antibiotics) Allergy (Verified 02/18/19 07:48) Review of Systems ROS unobtainable: Due to mental status Physical Exam Vital Signs: Temp Pulse Resp BP Pulse Ox 98.6 F 110 H 22 H 114/75 100 02/18/19 07:53 02/18/19 07:53 02/18/19 12:01 02/18/19 12:01 02/18/19 12:01 Intake & Output 02/17/19 02/18/19 02/19/19 06:59 06:59 06:59 Intake Total 100 Balance 100 Weight 125.1 kg General appearance: PRESENT: other - Moderate distress Head exam: PRESENT: normocephalic Eye exam: PRESENT: EOMI Mouth exam: PRESENT: dry mucosa Neck exam: PRESENT: full ROM Respiratory exam: PRESENT: clear to auscultation sindi Cardiovascular exam: PRESENT: RRR Pulses: PRESENT: normal carotid pulses GI/Abdominal exam: PRESENT: soft Musculoskeletal exam: PRESENT: other - The left upper extremity is examined. Patient is right-hand dominant. There are several bulla over the distal radius. The entire forearm from the elbow to the wrist into the fingers are markedly edematous and tight, with restricted range of motion of the fingers. There is some discoloration of the subcutaneous tissue around the volar surface of the wrist. There is no vanessa pus or open wound although the bullae are now weeping up. Results Laboratory Results: 02/18/19 08:14 02/18/19 08:14 02/18/19 02/18/19 02/18/19 08:14 08:14 08:14 WBC 21.4 H RBC 4.09 Hgb 11.8 L Hct 35.4 L MCV 87 MCH 28.8 MCHC 33.2 RDW 15.0 H Plt Count 409 Seg Neutrophils % Not Reportable Lymphocytes % Not Reportable Monocytes % Not Reportable Eosinophils % Not Reportable Basophils % Not Reportable Absolute Neutrophils Not Reportable Absolute Lymphocytes Not Reportable Absolute Monocytes Not Reportable Absolute Eosinophils Not Reportable Absolute Basophils Not Reportable VBG pH VBG pCO2 VBG HCO3 VBG Base Excess Sodium 137.1 Potassium 3.5 L Chloride 104 Carbon Dioxide 22 Anion Gap 11 BUN 6 L Creatinine 0.48 L Est GFR ( Amer) > 60 Est GFR (Non-Af Amer) > 60 Glucose 116 H Lactic Acid Calcium 9.1 Total Bilirubin 0.9 AST 22 ALT 10 Alkaline Phosphatase 116 Total Protein 7.3 Albumin 3.4 L Serum HCG, Qual NEGATIVE 02/18/19 02/18/19 08:14 08:14 WBC RBC Hgb Hct MCV MCH MCHC RDW Plt Count Seg Neutrophils % Lymphocytes % Monocytes % Eosinophils % Basophils % Absolute Neutrophils Absolute Lymphocytes Absolute Monocytes Absolute Eosinophils Absolute Basophils VBG pH 7.40 VBG pCO2 38.6 VBG HCO3 23.3 VBG Base Excess -1.3 Sodium Potassium Chloride Carbon Dioxide Anion Gap BUN Creatinine Est GFR ( Amer) Est GFR (Non-Af Amer) Glucose Lactic Acid 1.3 Calcium Total Bilirubin AST ALT Alkaline Phosphatase Total Protein Albumin Serum HCG, Qual Impressions: Upper Extremity CT 02/18/19 09:01 IMPRESSION: Diffuse left forearm cellulitis Assessment & Plan - Diagnosis (1) Cellulitis of left upper extremity Is this a current diagnosis for this admission?: Yes Plan: Impression: Worsening left upper extremity soft tissue infection despite intravenous and arm elevation. Situation concerning for soft tissue infection, possible necrotizing fasciitis possible compartment syndrome. Recommendations: 1. I discussed the case with Dr. Nabeel Samaniego, hand surgeon, he is not on-call. He recommended the patient be transferred I agree. Due to limited resources, exhausted state of general surgeon, and potential complexities associated with a deep soft tissue infection of the hand, agree with transfer. 2. I spoke with Dr. Oliva, hand surgeon at [facility] who is accepted the patient in transfer. I spoke with Dr. Danny Paula, hospitalist continuity coordinator [facility], who will activate the transfer arrangements and proceed with getting the patient to the [facility]. (2) Drug abuse Is this a current diagnosis for this admission?: Yes (3) Tobacco use Is this a current diagnosis for this admission?: Yes - Time Time Spent: 30 to 50 Minutes Smoking Cessation Education: over 10 minutes Medications reviewed and adjusted accordingly: Yes Anticipated discharge: Home
[2019-02-18 20:33] VITALS: BP 126/63
[2019-02-18] MEDS ORDERED: HEPARIN SOD (PORCINE) 5,000 UNIT/ML 1 ML SYRINGE SUBCUT SCH (22:00)
--- NOTE | 2019-02-20 13:19 | XCELERA REPORT ---
[address] [address] Upper Extremity Venous Evaluation Name: ЕЛЕНА ESTRADA Age: 34 yrs Gender: Female : 1985 Patient Status: Inpatient Patient Location: [address] [place], [place] [address] Study Date: 02/18/2019 07:23 PM Procedure: Unilateral duplex scan of the left upper extremity veins was performed, including responses to compression and other maneuvers. Reason For Study: left arm swelling Ordering Physician: BHUPENDRA MACKENZIE Performed By: Edwige Guerra Left Sided Venous Evaluation Normal vessel filling wall to wall, compression and augmentation as well as Colour flow down to the forearm veins. Interpretation Summary Normal compression, patency, spontaneous and phasic flow of the left upper extremity veins. : BHUPENDRA MACKENZIE > Yandel Salter
== END 2019-02-18 21:28 | disposition short-term general hospital (02) ==
LOC: ER 07:41 → EH 11:05 → 4S 13:52
PROVIDERS: ADMIT Internal Medicine; ATTEND Internal Medicine
DX: T79.A12A Traumatic compartment syndrome of left upper extremity, initial encounter (principal); X58.XXXA Exposure to other specified factors, initial encounter; L03.114 Cellulitis of left upper limb; F11.10 Opioid abuse, uncomplicated; R00.0 Tachycardia, unspecified; D72.829 Elevated white blood cell count, unspecified; R23.8 Other skin changes; F17.200 Nicotine dependence, unspecified, uncomplicated; R68.83 Chills (without fever); F15.10 Other stimulant abuse, uncomplicated; F12.90 Cannabis use, unspecified, uncomplicated; Z90.49 Acquired absence of other specified parts of digestive tract
CPT/HCPCS: 36415; 87040; 84703; 85025; 85610; 80053; 86701; 82803; 83605; 93971 ×2; 73201; G0378 ×2; J1885; J2270; J1170; J7060; J7050; J3370; J2543

== ENCOUNTER 2019-05-04 02:20 | Emergency (ER) | payer OTHER ==
[2019-05-04 03:13] VITALS: BP 108/67
--- NOTE | 2019-05-04 03:34 | ER Document Report ---
Doctor's Note Notes: 05/04/19 03:32 Patient left the ED before I was able to evaluate her. She was apparently brought in by EMS for a history of IV drug abuse and chest pain and shortness of breath but stated when she got here that she had to go bead picker her children and left the ed ambulating in no sign of pain or resp distress per nursing. She did tell nursing that she would return later when she got her children if she had any return of her sx or other concerning sx.
--- NOTE | 2019-05-05 06:40 | EKG REPORT ---
SEVERITY:- DEFECTIVE ECG - SINUS RHYTHM, V-RATE 80-103 : Confirmed by: Sudarshan Damon MD 05-May-2019 06:40:09
== END 2019-05-04 03:07 | disposition left against medical advice (07) ==
LOC: ER 02:20
DX: Z53.21 Procedure and treatment not carried out due to patient leaving prior to being seen by health care provider (principal)

== ENCOUNTER 2019-05-27 02:06 | Observation (INO) | payer OTHER ==
[2019-05-27] MEDS ORDERED: HYDROMORPHONE HCL INJ/PF 2 MG/ML AMPULE IV ONE ×2 (03:21→07:10)
[2019-05-27] MEDS ORDERED: ONDANSETRON HCL INJ/PF 4 MG/2 ML SDV IV ONE (03:21)
--- NOTE | 2019-05-27 03:22 | ER Document Report ---
ED Extremity Problem, Lower - General Chief Complaint: Foot Pain Stated Complaint: RIGHT FOOT PAIN Time Seen by Provider: 05/27/19 03:12 Primary Care Provider: CLIF BOSE MD [Primary Care Provider] - Follow up as needed Notes: Patient is a 34-year-old female that comes emergency department for chief complaint of a foot infection on the right foot. She states that the skin has been peeling away from the top of the foot for the past couple of weeks but now it is intensely more painful, it is red, skin is peeling back, and now she can see the bone. She states she had a similar problem with her left wrist where she had a had a debridement performed in [place], she states she has been on clindamycin for this. She states that she used to inject heroin but has not done so recently. Tetanus is up-to-date within 5 years. She denies fevers. She denies history of diabetes. She denies or any daily medications other than treatments for anxiety. TRAVEL OUTSIDE OF THE [place] IN LAST 30 DAYS: No - Related Data Allergies/Adverse Reactions: amoxicillin trihydrate [From Augmentin] Allergy (Intermediate, Verified 02/18/19 07:48) VOMITING Potassium Clavulanate * [From Augmentin] Allergy (Intermediate, Verified 02/18/19 07:48) VOMITING Sulfa (Sulfonamide Antibiotics) Allergy (Verified 02/18/19 07:48) Past Medical History - General Information source: Patient - Social History Smoking Status: Current Every Day Smoker Frequency of alcohol use: None Drug Abuse: Heroin Lives with: Family Family History: None, Reviewed & Not Pertinent Patient has suicidal ideation: No Patient has homicidal ideation: No Pulmonary Medical History: Reports: Hx Bronchitis - chronic problem, Hx Pneumonia Renal/ Medical History: Denies: Hx Peritoneal Dialysis Psychiatric Medical History: Reports: Hx Anxiety, Hx Depression Past Surgical History: Reports: Hx Appendectomy - Immunizations Hx Diphtheria, Pertussis, Tetanus Vaccination: Yes - 2008 Hx Pneumococcal Vaccination: 05/17/11 Review of Systems - Review of Systems Constitutional: No symptoms reported EENT: No symptoms reported Cardiovascular: No symptoms reported Respiratory: No symptoms reported Gastrointestinal: No symptoms reported Genitourinary: No symptoms reported Female Genitourinary: No symptoms reported Musculoskeletal: See HPI Skin: See HPI Hematologic/Lymphatic: No symptoms reported Neurological/Psychological: No symptoms reported Physical Exam - Vital signs Vitals: Temp Pulse Resp BP Pulse Ox 98.3 F 80 16 104/56 L 100 05/27/19 03:59 05/27/19 03:59 05/27/19 03:59 05/27/19 03:59 05/27/19 03:59 - Notes Notes: GENERAL: Anxious but alert and otherwise well-appearing HEAD: Normocephalic, atraumatic. EYES: Pupils equal, round, and reactive to light. Extraocular movements intact. ENT: Oral mucosa moist, tongue midline. Oropharynx unremarkable. Airway patent. LUNGS: Clear to auscultation bilaterally, no wheezes, rales, or rhonchi. No respiratory distress. HEART: Regular rate and rhythm. No murmur ABDOMEN: Soft, non-tender. Non-distended. EXTREMITIES: Left upper wrist with what appears to be a old healing wound without obvious cellulitis. Unremarkable upper extremities otherwise. Lateral dorsal aspect of the right foot with a large gaping wound with necrotic tissue and exposed bone with surrounding peeling skin and tenderness, erythema around the wound noted. Lower extremity exam unremarkable otherwise with normal capillary refill and sensation. BACK: no cervical, thoracic, lumbar midline tenderness. No saddle anesthesia, normal distal neurovascular exam. NEUROLOGICAL: Alert and oriented x3. Normal speech. Cranial nerves II through XII grossly intact. PSYCH: Anxious and restless SKIN: Warm, dry, normal turgor. No rashes or lesions noted. Course - Re-evaluation Re-evalutation: Patient has a terrible open wound with surrounding erythema and peeling skin, open wound is extremely deep with exposed bone over the top of the right foot. Area is very tender. Capillary refill and sensation of the foot intact, lower extremity actually is unremarkable otherwise other than what appears to be surrounding cellulitis. Patient is afebrile, vital signs unremarkable. She is very anxious but she is otherwise well-appearing. Patient was extremely labile, fidgety, mildly tachycardic, I suspect she is havi ng opiate withdrawals. She was given pain medication, after this she did significantly improve, she does admit that she was having opiate withdrawals with her last dose about 2 days ago. She also admits that she did inject into the foot and question even though she states she did not previously. Sepsis work-up had been initiated before I saw the patient. CBC unremarkable, lactic not elevated, chemistry is generally unremarkable, negative. Venous blood gas unremarkable. X-rays of the leg indicate the soft tissue wound but are otherwise unremarkable without gas gangrene or obvious osteomyelitis. Discussed with Dr. Rosas, initiated antibiotics, will discuss with surgeon. 05/27/19 07:10 Dr. Daugherty did see the patient, recommends that the patient will likely need surgical debridement and his plan is to put this on the OR schedule and have this performed approximately 6 PM tonight because the OR schedule is busy. He did tell us to the patient and patient states agreement. I spoke with Dr. Bansal, he did accept patient to his service. - Vital Signs Vital signs: Temp Pulse Resp BP Pulse Ox 98.6 F 101 H 19 121/76 100 05/27/19 07:28 05/27/19 07:28 05/27/19 07:28 05/27/19 07:28 05/27/19 07:28 - Laboratory Result Diagrams: 05/27/19 03:00 05/27/19 03:00 Laboratory results interpreted by me: 05/27/19 05/27/19 05/27/19 03:00 03:00 03:45 MCH 26.3 L RDW 17.1 H Baso % (Auto) 2.5 H VBG pH 7.43 H VBG pCO2 33.9 L Total Protein 8.5 H Discharge - Discharge Clinical Impression: IV drug abuse Wound, open, foot Qualifiers: Encounter type: initial encounter Laterality: right Qualified Code(s): S91.301A - Unspecified open wound, right foot, initial encounter Condition: Stable Disposition: ADMITTED INPATIENT Admitting Provider: Nimisha (Hospitalist) Unit Admitted: Medical Floor Referrals: CLIF BOSE MD [Primary Care Provider] - Follow up as needed
[2019-05-27 03:25] LABS: ABSOLUTE BASOPHILS # (AUTO) 0.1 10^3/uL (0.0-0.2); ABSOLUTE EOSINOPHILS # (AUTO) 0.1 10^3/uL (0.0-0.6); ABSOLUTE LYMPHOCYTES (AUTO) 1.9 10^3/uL (0.5-4.7); ABSOLUTE MONOCYTES (AUTO) 0.4 10^3/uL (0.1-1.4); ABSOLUTE NEUT (AUTO) 3.4 10^3/uL (1.7-8.2); BASOPHILS % (AUTO) 2.5 % (0-2); EOSINOPHILS % (AUTO) 1.3 % (0-6); HEMATOCRIT 38.7 % (36.0-47.0); HEMOGLOBIN 12.4 g/dL (12.0-15.5); LYMPHOCYTES % (AUTO) 32.1 % (13-45); MEAN CORPUSCULAR HEMOGLOBIN 26.3 pg (27.0-33.4); MEAN CORPUSCULAR HGB CONC 32.1 g/dL (32.0-36.0); MEAN CORPUSCULAR VOLUME 82 fl (80-97); MONOCYTES % (AUTO) 6.8 % (3-13); PLATELET COUNT 416 10^3/uL (150-450); RED BLOOD COUNT 4.73 10^6/uL (3.72-5.28); RED CELL DISTRIBUTION WIDTH 17.1 % (11.5-14.0); SEGMENTED NEUTROPHILS % (AUTO) 57.3 % (42-78); TOTAL CELLS COUNTED % (AUTO) 100 %; WHITE BLOOD COUNT 5.9 10^3/uL (4.0-10.5)
[2019-05-27 03:33] LABS: INTERNATIONAL RATION (INR) 1.11; PROTHROMBIN TIME 14.4 SEC (11.4-15.4)
[2019-05-27 03:47] LABS: ALBUMIN 4.1 g/dL (3.5-5.0); ALKALINE PHOSPHATASE 120 U/L (38-126); ANION GAP 11 (5-19); ASPARTATE AMINO TRANSFERASE 26 U/L (14-36); BILIRUBIN,DIRECT 0.1 mg/dL (0.0-0.4); BILIRUBIN,TOTAL 0.4 mg/dL (0.2-1.3); BLOOD UREA NITROGEN 7 mg/dL (7-20); CALCIUM 9.5 mg/dL (8.4-10.2); CARBON DIOXIDE 25 mmol/L (22-30); CHLORIDE 105 mmol/L (98-107); GLUCOSE 95 mg/dL (75-110); POTASSIUM 4.3 mmol/L (3.6-5.0); TOTAL PROTEIN 8.5 g/dL (6.3-8.2)
--- NOTE | 2019-05-27 04:02 | RADIOLOGY REPORT (SQ) ---
CLINICAL HISTORY: bone tenderness COMPARISON: None. TECHNIQUE: XR TIBIA FIBULA 2 VIEWS 05/27/2019 2:11 AM CDT FINDINGS: There is no fracture. Joint spaces are preserved. There is a large soft tissue defect anterior to the midfoot. There is no associated osteopenia. IMPRESSION: Large soft tissue defect in the lower extremity anterior to the ankle.
[2019-05-27 04:05] LABS: VENOUS BLOOD BASE EXCESS -1.4 mmol/L; VENOUS BLOOD HCO3 22.2 mmol/L (20-32); VENOUS BLOOD PCO2 33.9 mmHg (35-63); VENOUS BLOOD PH 7.43 (7.30-7.42)
--- NOTE | 2019-05-27 04:15 | RADIOLOGY REPORT (SQ) ---
CLINICAL HISTORY: bone tenderness COMPARISON: None. TECHNIQUE: XR FOOT 3 OR MORE VIEWS 05/27/2019 2:11 AM CDT FINDINGS: There is no fracture. There is mild narrowing of the first MTP joint. There is a large ulceration anterior to the ankle joint. Soft tissues are unremarkable. IMPRESSION: No gross evidence of osteomyelitis.
[2019-05-27] MEDS ORDERED: CEFTRIAXONE 1 GM/D5W RTU 1 GM/50 ML RTUPB IV ONE (05:12)
[2019-05-27] MEDS ORDERED: VANCOMYCIN HCL INJ 1000 MG VIAL IV ONE (05:13)
[2019-05-27] MEDS ORDERED: LORAZEPAM INJ 2 MG/1 ML VIAL IV ONE (05:41)
--- NOTE | 2019-05-27 06:43 | EKG REPORT ---
SEVERITY:- ABNORMAL ECG - SINUS RHYTHM PROBABLE LEFT ATRIAL ABNORMALITY PROLONGED QT INTERVAL : Confirmed by: Sudarshan Damon MD 27-May-2019 06:42:02
--- NOTE | 2019-05-27 07:20 | PDOC CONSULTATION ---
Consultation Consult Date: 05/27/19 Attending physician:: SUZANNA PIZARRO Provider Consulted: CAMELIA HERNANDEZ Consult reason:: foot infection History of Present Illness Admission Date/PCP: CLIF BOSE MD History of Present Illness: ЕЛЕНА ESTRADA is a 34 year old female Patient is a 34-year-old female that comes emergency department for chief complaint of a foot infection on the right foot. She states that the skin has been peeling away from the top of the foot for the past couple of weeks but now it is intensely more painful, it is red, skin is peeling back, and now she can see the bone. She states she had a similar problem with her left wrist where she had a had a debridement performed in [place], she states she has been on clindamycin for this. She states that she used to inject heroin but has not done so recently. Tetanus is up-to-date within 5 years. She denies fevers. She denies history of diabetes. She denies or any daily medications other than treatments for anxiety. Past Medical History Pulmonary Medical History: Reports: Bronchitis - chronic problem, Pneumonia Psychiatric Medical History: Reports: Depression Past Surgical History Past Surgical History: Reports: Appendectomy Social History Lives with: Family Smoking Status: Current Every Day Smoker Frequency of Alcohol Use: None Hx Recreational Drug Use: No Drugs: None Hx Prescription Drug Abuse: No Family History Family History: None, Reviewed & Not Pertinent Parental Family History Reviewed: No Children Family History Reviewed: NA Sibling(s) Family History Reviewed.: NA Medication/Allergy Home Medications: No Home Medications 02/18/19 Allergies/Adverse Reactions: amoxicillin trihydrate [From Augmentin] Allergy (Intermediate, Verified 02/18/19 07:48) VOMITING Potassium Clavulanate * [From Augmentin] Allergy (Intermediate, Verified 02/18/19 07:48) VOMITING Sulfa (Sulfonamide Antibiotics) Allergy (Verified 02/18/19 07:48) Review of Systems Constitutional: PRESENT: chills, fatigue, weakness Eyes: ABSENT: visual disturbances Ears: ABSENT: as per HPI, hearing changes, other Nose, Mouth, and Throat: ABSENT: as per HPI, headache(s), mouth pain, sore throat, vertigo, other Cardiovascular: ABSENT: as per HPI, chest pain, dyspnea on exertion, edema, or thropnea, palpitations, other Gastrointestinal: ABSENT: as per HPI, abdominal pain, bloating, coffee ground emesis, constipation, diarrhea, dysphagia, heartburn, hematemesis, hematochezia, melena, nausea, vomiting, other Musculoskeletal: PRESENT: as per HPI Integumentary: PRESENT: as per HPI Neurological: ABSENT: as per HPI, abnormal gait, abnormal movements, abnormal speech, confusion, convulsions, dizziness, focal weakness, frequent falls, lack of coordination, memory loss, numbness, paresthesias, restless legs, syncope, tingling, tremor(s), vertigo, weakness, other Psychiatric: ABSENT: as per HPI, anxiety, depression, hallucinations, homidical ideation, suicidal ideation, other Endocrine: ABSENT: as per HPI, cold intolerance, flushing, heat intolerance, menstrual abnormalities, polydipsia, polyphagia, polyuria, other Hematologic/Lymphatic: ABSENT: as per HPI, easy bleeding, easy bruising, lymphadenopathy, other Allergic/Immunologic: ABSENT: as per HPI, seasonal rhinorrhea, other Physical Exam Vital Signs: Temp Pulse Resp BP Pulse Ox 98.3 F 80 16 104/56 L 100 05/27/19 03:59 05/27/19 03:59 05/27/19 03:59 05/27/19 03:59 05/27/19 03:59 Intake & Output 05/26/19 05/27/19 05/28/19 06:59 06:59 06:59 Intake Total 50 Balance 50 General appearance: PRESENT: mild distress Head exam: PRESENT: normocephalic Eye exam: PRESENT: EOMI Mouth exam: PRESENT: dry mucosa Neck exam: PRESENT: full ROM Respiratory exam: PRESENT: clear to auscultation sindi Cardiovascular exam: PRESENT: RRR Pulses: PRESENT: +1 pedal pulses bilateral Vascular exam: PRESENT: normal capillary refill GI/Abdominal exam: PRESENT: soft Rectal exam: PRESENT: deferred Extremities exam: PRESENT: other - rt lat foot with full thickness necrosis circular area of 4cm with exposed tendons, surrounding cellulitis for 2cm palp distal pulse Neurological exam: PRESENT: alert, awake, oriented to person Psychiatric exam: PRESENT: agitated, anxious Skin exam: PRESENT: dry Results Laboratory Results: 05/27/19 03:00 05/27/19 03:00 05/27/19 05/27/19 05/27/19 03:00 03:00 03:00 WBC 5.9 RBC 4.73 Hgb 12.4 Hct 38.7 MCV 82 MCH 26.3 L MCHC 32.1 RDW 17.1 H Plt Count 416 Seg Neutrophils % 57.3 VBG pH VBG pCO2 VBG HCO3 VBG Base Excess Sodium 140.6 Potassium 4.3 Chloride 105 Carbon Dioxide 25 Anion Gap 11 BUN 7 Creatinine 0.71 Est GFR ( Amer) > 60 Glucose 95 Lactic Acid Calcium 9.5 Total Bilirubin 0.4 AST 26 Alkaline Phosphatase 120 Total Protein 8.5 H Albumin 4.1 Serum HCG, Qual NEGATIVE 05/27/19 05/27/19 03:45 03:45 WBC RBC Hgb Hct MCV MCH MCHC RDW Plt Count Seg Neutrophils % VBG pH 7.43 H VBG pCO2 33.9 L VBG HCO3 22.2 VBG Base Excess -1.4 Sodium Potassium Chloride Carbon Dioxide Anion Gap BUN Creatinine Est GFR ( Amer) Glucose Lactic Acid 1.4 Calcium Total Bilirubin AST Alkaline Phosphatase Total Protein Albumin Serum HCG, Qual Impressions: Foot X-Ray 05/27/19 02:11 IMPRESSION: No gross evidence of osteomyelitis. Tibia/Fibula X-Ray 05/27/19 02:11 IMPRESSION: Large soft tissue defect in the lower extremity anterior to the ankle. Assessment & Plan - Diagnosis (2) Wound, open, foot Qualifiers: Encounter type: initial encounter Laterality: right Qualified Code(s): S91.301A - Unspecified open wound, right foot, initial encounter Is this a current diagnosis for this admission?: Yes Plan: pt with full thickness skin necrosis rt foot secondary to ivda pt with hx of ivda and withdrawl will need admisssion for iv abx dressing changes and prob debridement . risks and beniftis of procedure incluididng possible loss of the extremity discussed with pt
[2019-05-27] MEDS ORDERED: KETOROLAC TROMETHAMINE INJ/PF 30 MG/1 ML SDV IV PRN (10:29)
[2019-05-27] MEDS ORDERED: MORPHINE SULFATE 10 MG/ML INJ IV PRN (10:29)
[2019-05-27] MEDS ORDERED: VANCOMYCIN HCL 0 MG in DEXTROSE 5%-WATER 250 ML IV NR (10:30)
[2019-05-27] MEDS ORDERED: LORAZEPAM INJ 2 MG/1 ML VIAL IV PRN (11:07)
[2019-05-27] MEDS ORDERED: HYDROMORPHONE HCL INJ/PF 2 MG/ML AMPULE IV PRN ×2 (11:23→13:04)
[2019-05-27] MEDS ORDERED: LORAZEPAM 1 MG TABLET PO ONE (11:30)
[2019-05-27 11:52] VITALS: BP 138/84
--- NOTE | 2019-05-27 13:48 | PDOC H&P ---
History of Present Illness Admission Date/PCP: 05/27/19 07:57 CLIF BOSE MD Patient complains of: right foot tenderness History of Present Illness: ЕЛЕНА ESTRADA is a 34 year old female with a past medical history of polysubstance abuse, IV heroin use, anxiety and severe left arm cellulitis 3 months ago who presented with right foot tenderness and ulceration. Patient says that around 2 weeks ago, she sustained a cut on the dorsal part of her right foot after hitting the area with a nail. She says that she developed redness and tenderness on the right foot and the wound eventually developed pus. She says that a few days ago it popped out and progressed to an enlarging ulcer. She denies fever or chills. Upon encounter in the ER, she definitely has a right foot cellulitis with a big ulceration on the right foot demonstrating necrotic tissues. She admits to continued recent use of heroin a week ago. Past Medical History Pulmonary Medical History: Reports: Bronchitis - chronic problem, Pneumonia Psychiatric Medical History: Reports: Depression Past Surgical History Past Surgical History: Reports: Appendectomy Social History Lives with: Family Smoking Status: Current Every Day Smoker Frequency of Alcohol Use: None Hx Recreational Drug Use: No Drugs: None Hx Prescription Drug Abuse: No Family History Family History: None, Reviewed & Not Pertinent Parental Family History Reviewed: Yes - No premature CAD Children Family History Reviewed: No Sibling(s) Family History Reviewed.: No Medication/Allergy Home Medications: No Home Medications 02/18/19 Allergies/Adverse Reactions: amoxicillin trihydrate [From Augmentin] Allergy (Intermediate, Verified 02/18/19 07:48) VOMITING Potassium Clavulanate * [From Augmentin] Allergy (Intermediate, Verified 02/18/19 07:48) VOMITING Sulfa (Sulfonamide Antibiotics) Allergy (Verified 02/18/19 07:48) Review of Systems All systems: reviewed and no additional remarkable complaints except as stated - As mentioned HPI Physical Exam Vital Signs: Temp Pulse Resp BP Pulse Ox 98.6 F 101 H 19 121/76 100 05/27/19 07:28 05/27/19 07:28 05/27/19 07:28 05/27/19 07:28 05/27/19 07:28 Intake & Output 05/26/19 05/27/19 05/28/19 06:59 06:59 06:59 Intake Total 50 Balance 50 Results Laboratory Results: 05/27/19 03:00 05/27/19 03:00 05/27/19 05/27/19 05/27/19 03:00 03:00 03:00 WBC 5.9 RBC 4.73 Hgb 12.4 Hct 38.7 MCV 82 MCH 26.3 L MCHC 32.1 RDW 17.1 H Plt Count 416 Seg Neutrophils % 57.3 VBG pH VBG pCO2 VBG HCO3 VBG Base Excess Sodium 140.6 Potassium 4.3 Chloride 105 Carbon Dioxide 25 Anion Gap 11 BUN 7 Creatinine 0.71 Est GFR ( Amer) > 60 Glucose 95 Lactic Acid Calcium 9.5 Total Bilirubin 0.4 AST 26 Alkaline Phosphatase 120 Total Protein 8.5 H Albumin 4.1 Serum HCG, Qual NEGATIVE 05/27/19 05/27/19 03:45 03:45 WBC RBC Hgb Hct MCV MCH MCHC RDW Plt Count Seg Neutrophils % VBG pH 7.43 H VBG pCO2 33.9 L VBG HCO3 22.2 VBG Base Excess -1.4 Sodium Potassium Chloride Carbon Dioxide Anion Gap BUN Creatinine Est GFR ( Amer) Glucose Lactic Acid 1.4 Calcium Total Bilirubin AST Alkaline Phosphatase Total Protein Albumin Serum HCG, Qual Impressions: Foot X-Ray 05/27/19 02:11 IMPRESSION: No gross evidence of osteomyelitis. Tibia/Fibula X-Ray 05/27/19 02:11 IMPRESSION: Large soft tissue defect in the lower extremity anterior to the ankle. Assessment and Plan - Diagnosis (1) Cellulitis of right foot Is this a current diagnosis for this admission?: Yes Plan: Start patient on vancomycin and cefepime. She has been evaluated by surgery and is scheduled for a debridement later today. Obtain wound cultures. (2) Necrotic ulcer of foot Is this a current diagnosis for this admission?: Yes Plan: As per #1. (3) IV drug abuse Is this a current diagnosis for this admission?: Yes Plan: Counseled on cessation. She says she is willing to get some insight from the psych team about her options to pursue substance abuse rehab programs. She has finally agreed to send a urine sample for UDS. - Time Time Spent with patient: 25-34 minutes
--- NOTE | 2019-05-27 13:49 | ADVANCED CARE ---
- Diagnosis (1) Cellulitis of right foot Diagnosis Current: Yes (2) IV drug abuse Diagnosis Current: Yes Resuscitation Status: Full Code Discussion: Discussed with patient. She says she is a full code and prefers to receive chest compressions, defibrillation or mechanical ventilation if the need arises. Of note, she says that she wants her friend in the bedside to be her surrogate medical decision maker for now.
[2019-05-27] MEDS ORDERED: VANCOMYCIN HCL 1,500 MG in DEXTROSE 5%-WATER 250 ML IV SCH (14:00)
[2019-05-27] MEDS ORDERED: CEFEPIME 1 GM/D5W RTU 1 GM/50 ML RTUPB IV SCH (22:00)
[2019-05-27] MEDS ORDERED: HEPARIN SOD (PORCINE) 5,000 UNIT/ML 1 ML VIAL SUBCUT SCH (22:00)
--- NOTE | 2019-05-28 18:22 | Left Against Medical Advice ---
Against Medical Advice Admission Date/Time: 05/27/19 07:57 Primary Care Provider: CLIF BOSE MD Date of Patient Emigration: 05/27/19 - Diagnosis: (1) Cellulitis of right foot Is this a current diagnosis for this admission?: Yes (2) IV drug abuse Is this a current diagnosis for this admission?: Yes (3) Heroin use Is this a current diagnosis for this admission?: Yes - Summary: Summary: Please see Admission and Progress Notes as well. ЕЛЕНА ESTRADA is a 34 F, who LEFT AGAINST MEDICAL ADVICE. The Patient was admitted on 05/27/19 07:57. Within less than an hour of being admitted to the floor patient expressed she wanted to leave AGAINST MEDICAL ADVICE. She has ripped her IV line out. Reassessed patient in the bedside and tried to convince her to stay. She says she needed to go out to the parking lot and she said she needed to hand some money to her kids. I allowed this request and had cyber security consultant her. She agreed to come back to the floor and got pretty upset after security asked her to hand them her personal chef. She reluctantly agreed. Was called by RN again later that patient was lighting a cigarette on the hallway. Security came up again and patient was told this is not allowed. She got upset again and again ripped her newly placed IV and walked out of the hospital without signing any AMA paper.
== END 2019-05-27 15:00 | disposition left against medical advice (07) ==
LOC: ER 02:06 → EH 07:57 → INTOOBSV 07:57 → 4N 11:01
PROVIDERS: ADMIT Internal Medicine; ATTEND Internal Medicine
DX: L03.115 Cellulitis of right lower limb (principal); F19.10 Other psychoactive substance abuse, uncomplicated; F11.90 Opioid use, unspecified, uncomplicated; F41.9 Anxiety disorder, unspecified; F17.200 Nicotine dependence, unspecified, uncomplicated; R68.83 Chills (without fever); R53.83 Other fatigue; R53.1 Weakness; I96 Gangrene, not elsewhere classified; S91.301A Unspecified open wound, right foot, initial encounter; W45.0XXA Nail entering through skin, initial encounter; X58.XXXA Exposure to other specified factors, initial encounter; R00.0 Tachycardia, unspecified; Z32.02 Encounter for pregnancy test, result negative
CPT/HCPCS: 93005; 96376; 99285; 96375; 96365; 96367; 36415; 87040; 84703; 85025; 85610; 80053; 82803; 83605; 73630; 73590; 93010; G0378 ×2; J1170; J2060; J2405; J7060; J3370; J0696

== ENCOUNTER 2019-06-18 22:49 | Emergency (ER) | payer OTHER ==
[2019-06-19] MEDS ORDERED: CEPHALEXIN 500 MG CAPSULE PO ONE (00:41)
[2019-06-19] MEDS ORDERED: ACETAMINOPHEN 325 MG TABLET PO ONE (00:41)
[2019-06-19] MEDS ORDERED: IBUPROFEN 600 MG TABLET PO ONE (00:41)
--- NOTE | 2019-06-19 01:47 | RADIOLOGY REPORT (SQ) ---
EXAM DESCRIPTION: XR FOOT 3 OR MORE VIEWS COMPLETED DATE/TME: 06/19/2019 00:43 CLINICAL HISTORY: 34 years ,Female foot ulceration/wound, r/o osteo COMPARISON: 05/27/2019. TECHNIQUE: RIGHT foot, Three view FINDINGS: No acute fractures or dislocations are identified. No osseous destructive lesions. No radiopaque foreign object noted. No significant ankle effusion noted. IMPRESSION: No acute fracture or dislocation is identified.
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
[2019-06-19 01:52] VITALS: BP 115/75
== END 2019-06-19 01:30 ==
LOC: ER 22:49
DX: L97.511 Non-pressure chronic ulcer of other part of right foot limited to breakdown of skin (principal); L08.9 Local infection of the skin and subcutaneous tissue, unspecified; Z88.2 Allergy status to sulfonamides; Z88.0 Allergy status to penicillin
CPT/HCPCS: 99283

== ENCOUNTER 2020-04-09 15:32 | Emergency (ER) | payer OTHER ==
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
--- NOTE | 2020-04-09 16:56 | RADIOLOGY REPORT (SQ) ---
EXAM DESCRIPTION: ACUTE ABDOMEN SERIES IMAGES COMPLETED DATE/TIME: 04/09/2020 4:34 pm REASON FOR STUDY: abd pain, swallowed baggy of meth COMPARISON: None. NUMBER OF VIEWS: Three views. TECHNIQUE: Frontal chest, supine abdomen and upright/decubitus abdomen radiographic images acquired. LIMITATIONS: None. FINDINGS: CHEST: No focal airspace disease, pleural effusion or pneumothorax. Normal cardiomediasti nal silhouette. FREE AIR: None. No abnormal gas collections. BOWEL GAS PATTERN: Nonobstructive pattern. No dilated loops or air fluid levels. CALCIFICATIONS: No suspicious calcifications. HARDWARE: None in the abdomen. SOFT TISSUES: No gross mass or suggestion of organomegaly. BONES: Serpiginous thoracolumbar curvature. OTHER: No definitive radiopaque foreign body. IMPRESSION: 1. No evidence of acute intrathoracic process. 2. No evidence of acute intra-abdominal/pelvic process. No radiopaque foreign body. TECHNICAL DOCUMENTATION: JOB ID: [id number] [employer]- All Rights Reserved Reading location - IP/workstation name: [email or web address]
--- NOTE | 2020-04-09 19:35 | EKG REPORT ---
SEVERITY:- ABNORMAL ECG - SINUS RHYTHM NONSPECIFIC INTRAVENTRICULAR CONDUCTION DELAY : Confirmed by: Chloe Slater MD 09-Apr-2020 19:35:16
[2020-04-09] MEDS ORDERED: KETOROLAC TROMETHAMINE INJ/PF 30 MG/1 ML SDV IV ONE (23:52)
[2020-04-09] MEDS ORDERED: NORMAL SALINE 1000 ML 1,000 ML IV ONE (23:53)
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
[2020-04-10 00:14] LABS: ABSOLUTE BASOPHILS # (AUTO) 0.1 10^3/uL (0.0-0.2); ABSOLUTE EOSINOPHILS # (AUTO) 0.2 10^3/uL (0.0-0.6); ABSOLUTE LYMPHOCYTES (AUTO) 2.3 10^3/uL (0.5-4.7); ABSOLUTE MONOCYTES (AUTO) 0.8 10^3/uL (0.1-1.4); ABSOLUTE NEUT (AUTO) 5.9 10^3/uL (1.7-8.2); BASOPHILS % (AUTO) 0.8 % (0-2); EOSINOPHILS % (AUTO) 2.5 % (0-6); HEMATOCRIT 39.8 % (36.0-47.0); HEMOGLOBIN 13.3 g/dL (12.0-15.5); LYMPHOCYTES % (AUTO) 24.7 % (13-45); MEAN CORPUSCULAR HEMOGLOBIN 29.4 pg (27.0-33.4); MEAN CORPUSCULAR HGB CONC 33.5 g/dL (32.0-36.0); MEAN CORPUSCULAR VOLUME 88 fl (80-97); MONOCYTES % (AUTO) 8.5 % (3-13); PLATELET COUNT 343 10^3/uL (150-450); RED BLOOD COUNT 4.53 10^6/uL (3.72-5.28); SEGMENTED NEUTROPHILS % (AUTO) 63.5 % (42-78); TOTAL CELLS COUNTED % (AUTO) 100 %; WHITE BLOOD COUNT 9.3 10^3/uL (4.0-10.5)
[2020-04-10 00:43] LABS: ALBUMIN 4.1 g/dL (3.5-5.0); ALKALINE PHOSPHATASE 119 U/L (38-126); ANION GAP 8 (5-19); ASPARTATE AMINO TRANSFERASE 23 U/L (14-36); BILIRUBIN,DIRECT 0.2 mg/dL (0.0-0.4); BILIRUBIN,TOTAL 0.6 mg/dL (0.2-1.3); BLOOD UREA NITROGEN 15 mg/dL (7-20); CALCIUM 9.6 mg/dL (8.4-10.2); CARBON DIOXIDE 23 mmol/L (22-30); CHLORIDE 107 mmol/L (98-107); CREATINE KINASE 102 U/L (30-135); GLUCOSE 113 mg/dL (75-110); POTASSIUM 3.9 mmol/L (3.6-5.0); TOTAL PROTEIN 7.4 g/dL (6.3-8.2)
[2020-04-10] MEDS ORDERED: DIAZEPAM 2 MG TABLET PO ONE (02:55)
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
[2020-04-10 04:19] LABS: APPEARANCE,URINE SLIGHTLY-CLOUDY; BILIRUBIN,URINE SMALL (NEGATIVE); COLOR,URINE AMBER; GLUCOSE, URINE NEGATIVE (NEGATIVE); KETONES,URINE TRACE mg/dL (NEGATIVE); PROTEIN,URINE 100 mg/dL (NEGATIVE); URINE SPECIFIC GRAVITY 1.039
[2020-04-10 04:26] VITALS: BP 109/87
[2020-04-10 04:33] LABS: URINE BARBITURATES SCREEN NEGATIVE; URINE COCAINE SCREEN NEGATIVE; URINE METHADONE SCREEN NEGATIVE; URINE PHENCYCLIDINE SCREEN NEGATIVE
[2020-04-10 04:40] LABS: URINE BENZODIAZEPINES SCREEN UNCONFIRMED POSITIVE; URINE MARIJUANA (THC) SCREEN UNCONFIRMED POSITIVE
== END 2020-04-10 06:18 ==
LOC: ER 15:32
DX: F19.10 Other psychoactive substance abuse, uncomplicated (principal); R10.9 Unspecified abdominal pain; R11.0 Nausea; R10.13 Epigastric pain; Z88.0 Allergy status to penicillin; Z88.2 Allergy status to sulfonamides; Z88.8 Allergy status to other drugs, medicaments and biological substances; F17.210 Nicotine dependence, cigarettes, uncomplicated
CPT/HCPCS: 93005; 99285; 96361; 96374; 36415; 82550; 83690; 84703; 85025; 80053; 81001; 84484; 80307; 74022; 74176; 93010; J3490; J1885; J7030

== ENCOUNTER 2020-08-28 17:18 | Emergency (ER) | payer OTHER ==
[2020-08-28 17:27] VITALS: BP 137/75
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
[2020-08-28 19:05] LABS: APPEARANCE,URINE CLOUDY; BILIRUBIN,URINE NEGATIVE (NEGATIVE); COLOR,URINE AMBER; GLUCOSE, URINE NEGATIVE (NEGATIVE); KETONES,URINE TRACE mg/dL (NEGATIVE); LEUKOCYTE ESTERASE,URINE NEGATIVE (NEGATIVE); NITRITE,URINE NEGATIVE (NEGATIVE); PROTEIN,URINE 100 mg/dL (NEGATIVE); URINE SPECIFIC GRAVITY 1.038
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
== END 2020-08-28 21:16 | disposition left against medical advice (07) ==
LOC: ER 17:18
DX: M25.562 Pain in left knee (principal); M54.5 Low back pain; M54.9 Dorsalgia, unspecified; V09.9XXA Pedestrian injured in unspecified transport accident, initial encounter; Z88.0 Allergy status to penicillin; Z88.2 Allergy status to sulfonamides; Z88.8 Allergy status to other drugs, medicaments and biological substances; F17.200 Nicotine dependence, unspecified, uncomplicated
CPT/HCPCS: 81001; 81025; 99281

== ENCOUNTER 2020-09-01 10:20 | Emergency (ER) | payer OTHER ==
[2020-09-01 10:29] VITALS: BP 142/92
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
[2020-09-01] MEDS ORDERED: NORMAL SALINE 1000 ML 1,000 ML IV ONE (11:16)
[2020-09-01] MEDS ORDERED: IPRATROPIUM/ALBUTEROL 0.5-2.5 MG/3 ML AMPUL NEB ONE (11:22)
--- NOTE | 2020-09-01 11:53 | RADIOLOGY REPORT (SQ) ---
EXAM DESCRIPTION: CHEST SINGLE VIEW IMAGES COMPLETED DATE/TIME: 09/01/2020 11:12 am REASON FOR STUDY: cough COMPARISON: Chest films 10/11/2014, 11/30/2016 EXAM PARAMETERS: NUMBER OF VIEWS: One view. TECHNIQUE: Single frontal radiographic view of the chest acquired. RADIATION DOSE: NA LIMITATIONS: None. FINDINGS: LUNGS AND PLEURA: No opacities, masses or pneumothorax. No pleural effusion. MEDIASTINUM AND HILAR STRUCTURES: No masses. Contour normal. HEART AND VASCULAR STRUCTURES: Heart normal in size. Normal vasculature. BONES: Thoracic scoliosis HARDWARE: None in the chest. OTHER: No other significant finding. IMPRESSION: NO ACUTE RADIOGRAPHIC FINDING IN THE CHEST. TECHNICAL DOCUMENTATION: JOB ID: [id number] 2010 [employer]- All Rights Reserved Reading location - IP/workstation name: [email or web address]
[2020-09-01] MEDS ORDERED: ONDANSETRON HCL INJ/PF 4 MG/2 ML SDV IV ONE (12:41)
[2020-09-01] MEDS ORDERED: KETOROLAC TROMETHAMINE INJ/PF 30 MG/1 ML SDV IV ONE (12:41)
[2020-09-01 12:58] LABS: ABSOLUTE EOSINOPHILS # (AUTO) 0.1 10^3/uL (0.0-0.6); ABSOLUTE LYMPHOCYTES (AUTO) 1.7 10^3/uL (0.5-4.7); ABSOLUTE MONOCYTES (AUTO) 0.5 10^3/uL (0.1-1.4); ABSOLUTE NEUT (AUTO) 6.5 10^3/uL (1.7-8.2); BASOPHILS % (AUTO) 0.6 % (0-2); EOSINOPHILS % (AUTO) 1.3 % (0-6); HEMATOCRIT 39.5 % (36.0-47.0); HEMOGLOBIN 13.5 g/dL (12.0-15.5); LYMPHOCYTES % (AUTO) 19.6 % (13-45); MEAN CORPUSCULAR HEMOGLOBIN 31.2 pg (27.0-33.4); MEAN CORPUSCULAR HGB CONC 34.2 g/dL (32.0-36.0); MEAN CORPUSCULAR VOLUME 91 fl (80-97); MONOCYTES % (AUTO) 5.8 % (3-13); PLATELET COUNT 295 10^3/uL (150-450); RED BLOOD COUNT 4.34 10^6/uL (3.72-5.28); RED CELL DISTRIBUTION WIDTH 12.7 % (11.5-14.0); SEGMENTED NEUTROPHILS % (AUTO) 72.7 % (42-78); TOTAL CELLS COUNTED % (AUTO) 100 %; WHITE BLOOD COUNT 8.9 10^3/uL (4.0-10.5)
[2020-09-01 13:20] LABS: APPEARANCE,URINE CLEAR; BILIRUBIN,URINE NEGATIVE (NEGATIVE); COLOR,URINE YELLOW; GLUCOSE, URINE NEGATIVE (NEGATIVE); KETONES,URINE NEGATIVE (NEGATIVE); LEUKOCYTE ESTERASE,URINE NEGATIVE (NEGATIVE); NITRITE,URINE NEGATIVE (NEGATIVE); PROTEIN,URINE NEGATIVE (NEGATIVE); URINE SPECIFIC GRAVITY 1.011; UROBILINOGEN,URINE NEGATIVE mg/dL (<2.0)
[2020-09-01 13:21] LABS: ALKALINE PHOSPHATASE 87 U/L (38-126); ANION GAP 9 (5-19); ASPARTATE AMINO TRANSFERASE 26 U/L (14-36); BILIRUBIN,DIRECT 0.2 mg/dL (0.0-0.4); BILIRUBIN,TOTAL 0.4 mg/dL (0.2-1.3); BLOOD UREA NITROGEN 9 mg/dL (7-20); CALCIUM 9.4 mg/dL (8.4-10.2); CARBON DIOXIDE 25 mmol/L (22-30); CHLORIDE 106 mmol/L (98-107); GLUCOSE 105 mg/dL (75-110); TOTAL PROTEIN 7.2 g/dL (6.3-8.2)
[2020-09-01 14:22] LABS: A TYPE INFLUENZA AG NEGATIVE (NEGATIVE); B INFLUENZA AG NEGATIVE (NEGATIVE)
--- NOTE | 2020-09-02 20:41 | EKG REPORT ---
SEVERITY:- ABNORMAL ECG - SINUS RHYTHM NONSPECIFIC INTRAVENTRICULAR CONDUCTION DELAY : Confirmed by: Chloe Slater MD 02-Sep-2020 20:40:58
== END 2020-09-01 14:25 | disposition home or self-care (01) ==
LOC: ER 10:20
DX: H72.91 Unspecified perforation of tympanic membrane, right ear (principal); F11.23 Opioid dependence with withdrawal; T40.2X6A Underdosing of other opioids, initial encounter; R05 Cough; M79.10 Myalgia, unspecified site; Z20.822 Contact with and (suspected) exposure to COVID-19; Z88.0 Allergy status to penicillin; Z88.2 Allergy status to sulfonamides; F17.200 Nicotine dependence, unspecified, uncomplicated
CPT/HCPCS: 93005; 94640; 99285; 96361; 96374; 96375; 36415; 84702; 85025; 87635; 80053; 81001; 84484; 87804; 71045; 93010; J1885; J2405; J7030; C9803